=== PATIENT | female | born 1955 | race Caucasian/White ===

== ENCOUNTER 2018-02-01 10:19 | Emergency (ER) | payer BC ==
[2018-02-01] MEDS ORDERED: HYDROmorphone 1 MG/ML 1 ML SYRINGE IM STA (10:55)
[2018-02-01] MEDS ORDERED: predniSONE 50 MG TAB PO STA (10:55)
[2018-02-01] MEDS ORDERED: KETOROLAC 60 MG/2 ML VIAL IM STA (10:55)
--- NOTE | 2018-02-01 10:59 | ED ---
General Adult HPI - General Chief complaint: Extremity Problem,Nontraumatic Stated complaint: Sciatic Pain Time Seen by Provider: 02/01/18 10:20 Source: patient, RN notes reviewed Mode of arrival: wheelchair Limitations: physical limitation - History of Present Illness Initial comments: This is a 62-year-old female who presents emergency Department complaining of left-sided back pain it radiates down the anterior aspect of her left leg. Patient states there is some altered sensation on her winn but no numbness. Patient denies any perineum numbness. Patient denies any urinary incontinence or urinary retention. Patient denies any injury. Patient states she's had similar symptoms in the past. Patient states standing seems to improve the pain sitting worsens it as does lying down. Patient states she seen a chiropractor twice this week and has not improved her symptoms. Patient is also seen a massage therapist and that has not improved her symptoms. Patient denies any weakness of her lower extremities. He has a minute. The patient she prefers to stand than sit on the bed. - Related Data Home Medications Medication Instructions Recorded Confirmed Aspirin EC [Ecotrin Low Dose] 81 mg PO HS 02/01/18 02/01/18 Bimatoprost [Lumigan .01% Ophth 1 drop BOTH EYES HS 02/01/18 02/01/18 Soln] Insulin Detemir [Levemir Flextouch] 55 units SQ HS 02/01/18 02/01/18 Liraglutide [Victoza 3-Rober] 1.8 mg SQ DAILY 02/01/18 02/01/18 Magnesium Oxide [Mag-Ox] 250 mg PO HS 02/01/18 02/01/18 Repaglinide [Prandin] 0.5 mg PO AC-TID 02/01/18 02/01/18 Simvastatin [Zocor] 20 mg PO HS 02/01/18 02/01/18 Spironolactone [Aldactone] 25 mg PO DAILY 02/01/18 02/01/18 Timolol 0.5% Ophth Gel Forming 1 drops RIGHT EYE DAILY 02/01/18 02/01/18 [Timoptic-Xe] metFORMIN HCL 1,000 mg PO BID 02/01/18 02/01/18 Previous Rx's Medication Instructions Recorded Hydrocodone/Acetaminophen [Kipton 1 each PO Q4HR PRN #14 tab 02/01/18 5-325] Ibuprofen [Motrin] 600 mg PO Q6HR PRN #20 tab 02/01/18 predniSONE 40 mg PO DAILY #8 tab 02/01/18 Allergies Allergy/AdvReac Type Severity Reaction Status Date / Time No Known Allergies Allergy Verified 02/01/18 11:12 Review of Systems ROS Statement: Those systems with pertinent positive or pertinent negative responses have been documented in the HPI. ROS Other: All systems not noted in ROS Statement are negative. 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 Patient is nontoxic and well- hydrated and is moderate distress. ENT: Neck is soft and supple. No significant lymphadenopathy is noted. Oropharynx is clear. Moist mucous membranes. Neck has full range of motion without eliciting any pain. EYES: The sclera were anicteric and conjunctiva were pink and moist. Extraocular movements were intact and pupils were equal round and reactive to light. Eyelids were unremarkable. PULMONARY: Unlabored respirations. Good breath sounds bilaterally. No audible rales rhonchi or wheezing was noted. CARDIOVASCULAR: There is a regular rate and rhythm without any murmurs gallops or rubs. ABDOMEN: Soft and nontender with normal bowel sounds. No palpable organomegaly was noted. There is no palpable pulsatile mass. SKIN: Skin is clear with no lesions or rashes and otherwise unremarkable. NEUROLOGIC: Patient is alert and oriented x3. Cranial nerves II through XII are grossly intact. Motor and sensory are also intact. Normal speech, volume and content. Symmetrical smile. Straight Leg raise is negative bilaterally. MUSCULOSKELETAL: Normal extremities with adequate strength and full range of motion. There is no lumps lumps rashes or swelling in the inguinal area on the left no findings of her hernia. LYMPHATICS: No significant lymphadenopathy is noted PSYCHIATRIC: Normal psychiatric evaluation. Limitations: physical limitation Course Vital Signs 02/01/18 02/01/18 10:23 11:27 Temperature 98.2 F Pulse Rate 75 68 Respiratory 18 18 Rate Blood Pressure 150/82 143/79 O2 Sat by Pulse 100 97 Oximetry Medical Decision Making - Medical Decision Making X-ray shows no acute changes however there is some arthritis and spondylolisthesis that's minimal Patient's pain was much improved. Disposition Clinical Impression: Lumbar radiculopathy Disposition: HOME SELF-CARE Condition: Good Instructions: Lumbar Radiculopathy (ED) Prescriptions: Hydrocodone/Acetaminophen [Kipton 5-325] 1 each PO Q4HR PRN #14 tab PRN Reason: Pain Ibuprofen [Motrin] 600 mg PO Q6HR PRN #20 tab PRN Reason: For pain predniSONE 40 mg PO DAILY #8 tab Is patient prescribed a controlled substance at d/c from ED?: Yes When asked, does pt state using other controlled substances?: No If prescribed controlled substance>3 days was MAPS reviewed?: Prescribed <3 Days If opioid is for acute pain is fill amount 7 days or less?: Yes If Rx opioid, was Start Talking consent form obtained?: Yes Referrals: Mahnaz Gill DO [Primary Care Provider] - 1-2 days Time of Disposition: 13:17
--- NOTE | 2018-02-01 12:19 | XR ---
EXAMINATION TYPE: XR lumbosacral spine min 4V DATE OF EXAM: 02/01/2018 CLINICAL HISTORY: Left-sided sciatic pain TECHNIQUE: Frontal, lateral, and oblique images of the lumbar spine are obtained. COMPARISON: None FINDINGS: There are 5 lumbar type vertebral bodies identified. There is transitional-type L6 verteb ra is sacralized on the right. The lumbar spine shows slight grade 1 anterolisthesis of L4 on L5 with out evidence of acute fracture or dislocation. Vertebral body heights are within normal limits. Mil d to moderate multilevel disc space narrowing with moderate multilevel anterior and lateral spurring most prominent in the upper lumbar levels. The oblique images appear within normal limits. Vascular c alcification overlying soft tissue is seen. IMPRESSION: As above.
[2018-02-01 13:27] VITALS: BP 178/83; PULSE 57; RESP 16; TEMP 97.8
== END 2018-02-01 13:39 | disposition home or self-care (01) ==
LOC: EC 10:19
DX: M54.16 Radiculopathy, lumbar region (principal); E11.9 Type 2 diabetes mellitus without complications; E78.5 Hyperlipidemia, unspecified; I10 Essential (primary) hypertension; E07.9 Disorder of thyroid, unspecified; Z79.4 Long term (current) use of insulin; Z79.82 Long term (current) use of aspirin; Z79.899 Other long term (current) drug therapy
CPT/HCPCS: 72110; 99283; 96372 ×2; J1885; J1170; J7512

== ENCOUNTER 2024-06-18 14:31 | Inpatient (IN) | payer MEDICARE, OTHER ==
--- NOTE | 2024-06-18 15:09 | ED ---
General Adult HPI - General Chief complaint: Back Pain/Injury Stated complaint: back pain Time Seen by Provider: 06/18/24 14:54 Source: patient, RN notes reviewed Mode of arrival: ambulatory Limitations: no limitations - History of Present Illness Initial comments: 68-year-old female presents to the emergency department for evaluation of left lower back pain. Patient reports that this started yesterday and was mild. Since then she has noticed increased pain. She states that the pain is dull when she is sitting but is sharp shooting pain with movement. Patient's son notes that the patient has not been taking her medications as she is supposed t o. He states that she has a history of dementia and has been fighting to take her medications and therefore her blood sugars have been in adequately controlled. He reports that her sugars have been 300s to 500s at home. Patient reports increased thirst and frequent urination. - Related Data Home Medications Medication Instructions Recorded Confirmed Aspirin EC [Ecotrin Low Dose] 81 mg PO HS 02/01/18 06/18/24 Bimatoprost [Lumigan .01% Ophth 1 drop BOTH EYES HS 02/01/18 06/18/24 Soln] Simvastatin [Zocor] 20 mg PO HS 02/01/18 06/18/24 Spironolactone [Aldactone] 25 mg PO DAILY 02/01/18 06/18/24 Timolol 0.5% Ophth Gel Forming 1 drop BOTH EYES DAILY 02/01/18 06/19/24 [Timoptic-Xe] metFORMIN HCL [Glucophage] 1,000 mg PO BID 02/01/18 06/18/24 Celecoxib [CeleBREX] 200 mg PO DAILY 06/18/24 06/19/24 Insulin Aspart [NovoLOG Flexpen] 20 units SQ AC-TID 06/18/24 06/18/24 Insulin Glargine,Hum.rec.anlog 100 units SQ HS 06/18/24 06/18/24 [Que Cabreraostivory] Losartan/Hydrochlorothiazide 1 tab PO DAILY 06/18/24 06/18/24 [Hyzaar 100-25 Tablet] Repaglinide [Prandin] 0.5 mg PO BID 06/18/24 06/18/24 Allergies Allergy/AdvReac Type Severity Reaction Status Date / Time No Known Allergies Allergy Verified 06/18/24 14:51 Review of Systems ROS Statement: Those systems with pertinent positive or pertinent negative responses have been documented in the HPI. ROS Other: All systems not noted in ROS Statement are negative. 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 Absent: scleral icterus, conjunctival injection, periorbital swelling ENT exam: Present: normal exam, mucous membranes moist Neck exam: Present: normal inspection. Absent: tenderness, meningismus, lymphadenopathy Respiratory exam: Present: normal lung sounds bilaterally. Absent: respiratory distress, wheezes, rales, rhonchi, stridor Cardiovascular Exam: Present: regular rate, normal rhythm, normal heart sounds. Absent: systolic murmur, diastolic murmur, rubs, gallop, clicks GI/Abdominal exam: Present: soft. Absent: distended, tenderness, guarding, rebound, rigid Back exam: Present: tenderness Neurological exam: Present: alert. Absent: oriented X3 (Oriented x 2, patient baseline) Psychiatric exam: Present: normal affect, normal mood Skin exam: Present: warm, dry, intact, normal color. Absent: rash Course Vital Signs 06/18/24 06/18/24 14:48 22:14 Temperature 98.1 F Pulse Rate 68 62 Respiratory 20 18 Rate Blood Pressure 142/84 136/76 O2 Sat by Pulse 100 96 Oximetry Medical Decision Making - Medical Decision Making Was pt. sent in by a medical professional or institution (, PA, MUSICAL THERAPIST, urgent care, hospital, or detention...) When possible be specific @ -No Did you speak to anyone other than the patient for history (EMS, parent, family, police, friend...)? What history was obtained from this source @ -discussed with patients son Did you review nursing and triage notes (agree or disagree)? Why? @ -I reviewed and agree with nursing and triage notes Were old charts reviewed (outside hosp., previous admission, EMS record, old EKG, old radiological studies, urgent care reports/EKG's, detention records)? Report findings @ -No old charts were reviewed Differential Diagnosis (chest pain, altered mental status, abdominal pain women, abdominal pain men, vaginal bleeding, weakness, fever, dyspnea, syncope, hea dache, dizziness, GI bleed, back pain, seizure, CVA, palpatations, mental health, musculoskeletal)? @ -Differential Back Pain: Strain, zoster, cauda equina syndrome, epidural abscess, vertebral oste omyelitis, discitis, fracture, subluxation, disc herniation, DJD, spinal stenosis, dissection, AAA, pancreatitis, peptic ulcer disease, pyelonephritis, kidney stone, this is not meant to be an all-inclusive list. EKG interpreted by me (3pts min.). @ -None X-rays interpreted by me (1pt min.). @ -None done CT interpreted by me (1pt min.). @ -None done U/S interpreted by me (1pt. min.). @ -None done What testing was considered but not performed or refused? (CT, X-rays, U/S, labs)? Why? @ -None What meds were considered but not given or refused? Why? @ -None Did you discuss the management of the patient with other professionals (professionals i.e. , PA, MUSICAL THERAPIST, lab, RT, psych nurse, licensed clinical social worker, tree trimmer, teacher, unclaimed property officer, manager rn case)? Give summary @ -Management discussed with Evon Ordaz with [facility] who is accepting of the admission Was smoking cessation discussed for >3mins.? @ -No Was critical care preformed (if so, how long)? @ -No Were there social determinants of health that impacted care today? How? (Homelessness, low income, unemployed, alcoholism, drug addiction, transportation, low edu. Level, literacy, decrease access to med. care, retirement, rehab)? @ -No Was there de-escalation of care discussed even if they declined (Discuss DNR or withdrawal of care, Hospice)? DNR status @ -No What co-morbidities impacted this encounter? (DM, HTN, Smoking, COPD, CAD, Can cer, CVA, ARF, Chemo, Hep., AIDS, mental health diagnosis, sleep apnea, morbid obesity)? @ -None Was patient admitted / discharged? Hospital course, mention meds given and route, prescriptions, significant lab abnormalities, going to OR and other pertinent info. @ -Admitted. Patient presented to the emergency department for evaluation of back pain. Patient has a history of dementia and has been refusing medications. Patient's son expressing concerns for blood sugar control. X-rays obtained of the lumbar spine and pelvis which show no acute process. UA was obtained laboratory studies.Shows moderate leukocyte esterase but contaminated with 13 squamous epithelial cells, 4+ glucose and 2+ ketones are present. Laboratory studies obtained revealing no significant leukocytosis, hemoglobin stable; normal coagulation studies. Glucose 292 patient was provided a liter of fluids in the ED. Sliding scale insulin ordered. Son expressing concern for her care at home as he lives 1 hour away and her is not helping her with her medications. Patient will be admitted. Case was discussed with Evon Ordaz who is accepting of the admission. Case discussed with Dr. Rob Undiagnosed new problem with uncertain prognosis? @ -No Drug Therapy requiring intensive monitoring for toxicity (Heparin, Nitro, Insulin, Cardizem)? @ -No Were any procedures done? @ -No Diagnosis/symptom? @ -Uncontrolled diabetes, back pain Acute, or Chronic, or Acute on Chronic? @ -acute Uncomplicated (without systemic symptoms) or Complicated (systemic symptoms)? @ -uncomplicated Side effects of treatment? @ -No Exacerbation, Progression, or Severe Exacerbation? @ -No Poses a threat to life or bodily function? How? (Chest pain, [place], [place], pneumonia, PE, COPD, DKA, ARF, appy, cholecystitis, CVA, Diverticulitis, Homicidal, Suicidal, threat to staff... and all critical care pts) @ -No - Lab Data Result diagrams: 06/18/24 17:17 06/18/24 17:17 Lab Results 06/18/24 06/18/24 06/18/24 Range/Units 15:29 17:13 17:17 WBC 6.8 (3.8-10.6) k/uL RBC 4.69 (3.80-5.40) m/uL Hgb 14.7 (11.4-16.0) gm/dL Hct 44.1 (34.0-46.0) % MCV 94.0 (80.0-100.0) fL MCH 31.3 (25.0-35.0) pg MCHC 33.3 (31.0-37.0) g/dL RDW 13.5 (11.5-15.5) % Plt Count 365 (150-450) k/uL MPV 7.7 Neutrophils % 64 % Lymphocytes % 29 % Monocytes % 5 % Eosinophils % 1 % Basophils % 1 % Neutrophils # 4.3 (1.3-7.7) k/uL Lymphocytes # 2.0 (1.0-4.8) k/uL Monocytes # 0.3 (0-1.0) k/uL Eosinophils # 0.1 (0-0.7) k/uL Basophils # 0.0 (0-0.2) k/uL PT (10.0-12.5) sec INR (<1.2) APTT (22.0-30.0) sec Sodium (137-145) mmol/L Potassium (3.5-5.1) mmol/L Chloride (98-107) mmol/L Carbon Dioxide (22-30) mmol/L Anion Gap mmol/L BUN (7-17) mg/dL Creatinine (0.52-1.04) mg/dL Est GFR (CKD-EPI)AfAm (>60 ml/min/1.73 sqM) Est GFR (CKD-EPI)NonAf (>60 ml/min/1.73 sqM) Glucose (74-99) mg/dL POC Glucose (mg/dL) 287 H (70-110) mg/dL POC Glu Winterizer ID Karol Tish Elias Calcium (8.4-10.2) mg/dL Total Bilirubin (0.2-1.3) mg/dL AST (14-36) U/L ALT (4-34) U/L Alkaline Phosphatase (38-126) U/L Total Protein (6.3-8.2) g/dL Albumin (3.5-5.0) g/dL Lipase (23-300) U/L Urine Color Colorless Urine Appearance Cloudy H (Clear) Urine pH 5.5 (5.0-8.0) Ur Specific Ceres 1.016 (1.001-1.035) Urine Protein Negative (Negative) Urine Glucose (UA) 4+ H (Negative) Urine Ketones 2+ H (Negative) Urine Blood Negative (Negative) Urine Nitrite Negative (Negative) Urine Bilirubin Negative (Negative) Urine Urobilinogen <2.0 (<2.0) mg/dL Ur Leukocyte Esterase Moderate H (Negative) Urine RBC 2 (0-5) /hpf Urine WBC 10 H (0-5) /hpf Ur Squamous Epith Cells 13 H (0-4) /hpf Urine Bacteria Rare H (None) /hpf Urine Mucus Rare H (None) /hpf Urine Yeast (Budding) Rare H (None) /hpf 06/18/24 06/18/24 06/18/24 Range/Units 17:17 17:17 20:10 WBC (3.8-10.6) k/uL RBC (3.80-5.40) m/uL Hgb (11.4-16.0) gm/dL Hct (34.0-46.0) % MCV (80.0-100.0) fL MCH (25.0-35.0) pg MCHC (31.0-37.0) g/dL RDW (11.5-15.5) % Plt Count (150-450) k/uL MPV Neutrophils % % Lymphocytes % % Monocytes % % Eosinophils % % Basophils % % Neutrophils # (1.3-7.7) k/uL Lymphocytes # (1.0-4.8) k/uL Monocytes # (0-1.0) k/uL Eosinophils # (0-0.7) k/uL Basophils # (0-0.2) k/uL PT 10.4 (10.0-12.5) sec INR 0.9 (<1.2) APTT 23.3 (22.0-30.0) sec Sodium 133 L (137-145) mmol/L Potassium 4.9 (3.5-5.1) mmol/L Chloride 98 (98-107) mmol/L Carbon Dioxide 25 (22-30) mmol/L Anion Gap 10 mmol/L BUN 23 H (7-17) mg/dL Creatinine 0.62 (0.52-1.04) mg/dL Est GFR (CKD-EPI)AfAm >90 (>60 ml/min/1.73 sqM) Est GFR (CKD-EPI)NonAf >90 (>60 ml/min/1.73 sqM) Glucose 292 H (74-99) mg/dL POC Glucose (mg/dL) 260 H (70-110) mg/dL POC Glu Winterizer ID Phoebe Barahona Calcium 10.4 H (8.4-10.2) mg/dL Total Bilirubin 1.1 (0.2-1.3) mg/dL AST 31 (14-36) U/L ALT 23 (4-34) U/L Alkaline Phosphatase 81 (38-126) U/L Total Protein 8.1 (6.3-8.2) g/dL Albumin 4.8 (3.5-5.0) g/dL Lipase 49 (23-300) U/L Urine Color Urine Appearance (Clear) Urine pH (5.0-8.0) Ur Specific Ceres (1.001-1.035) Urine Protein (Negative) Urine Glucose (UA) (Negative) Urine Ketones (Negative) Urine Blood (Negative) Urine Nitrite (Negative) Urine Bilirubin (Negative) Urine Urobilinogen (<2.0) mg/dL Ur Leukocyte Esterase (Negative) Urine RBC (0-5) /hpf Urine WBC (0-5) /hpf Ur Squamous Epith Cells (0-4) /hpf Urine Bacteria (None) /hpf Urine Mucus (None) /hpf Urine Yeast (Budding) (None) /hpf Disposition Clinical Impression: Hyperglycemia, Back pain, Unable to care for self Disposition: ADMITTED IP TO THIS HOSP Condition: Stable Is patient prescribed a controlled substance at d/c from ED?: No
[2024-06-18 15:49] LABS: Appearance,Urine Cloudy (Clear); Bacteria,Urine Rare /hpf; Bilirubin,Urine Negative (Negative); Blood,Urine Negative (Negative); Budding Yeast,Urine Rare /hpf; Color,Urine Colorless; Glucose,Urine (UA) 4+ (Negative); Leukocyte Esterase,Urine Moderate (Negative); Mucus,Urine Rare /hpf; Nitrite,Urine Negative (Negative); PH, Urine 5.5 (5.0-8.0); Protein,Urine Negative (Negative); RBC,Urine 2 /hpf (0-5); Specific Gravity,Urine 1.016 (1.001-1.035); Squamous Epithelial Cell,Urine 13 /hpf (0-4); Urobilinogen,Urine <2.0 mg/dL (<2.0); WBC,Urine 10 /hpf (0-5)
--- NOTE | 2024-06-18 16:01 | XR ---
EXAMINATION TYPE: XR pelvis AP view DATE OF EXAM: 06/18/2024 3:33 PM COMPARISON: None. CLINICAL INDICATION: Female, 68 years old with history of pain, TECHNIQUE: AP view(s) obtained. FINDINGS: Femoral heads articulate with the acetabulum. Symphysis pubis and sacroiliac joints are normal. No ac tatitlek fractures or dislocations evident. Normal bowel gas is present. IMPRESSION: 1. Unremarkable AP pelvis [facility], Workstation: [facility], 06/18/2024 3:59 PM
[2024-06-18 16:03] LABS: Ketones,Urine 2+ (Negative)
--- NOTE | 2024-06-18 16:03 | XR ---
EXAMINATION TYPE: XR lumbar spine 2 or 3V DATE OF EXAM: 06/18/2024 3:33 PM COMPARISON: None. CLINICAL INDICATION: Female, 68 years old with history of pain, TECHNIQUE: 3 view(s) obtained. FINDINGS: There are 5 lumbar-type vertebral bodies. Pedicles are intact. Some disc space narrowing is present p osteriorly at L2-3. Vertebral body heights are preserved. Alignment is preserved. Narrowing of the L5 -S1 disc height is likely present. Minimal spondylosis is present. Vascular calcifications within the aorta. IMPRESSION: 1. No acute osseous abnormality lumbar spine. 2. Degenerative disc changes L2-3 and L5-S1 [facility], Workstation: [facility], 06/18/2024 4:01 PM
[2024-06-18 17:14] LABS: Glucose,Whole Blood 287 mg/dL (70-110)
[2024-06-18] MEDS: SODIUM CHLORIDE 0.9% 2,000 ML IV ONE (17:25)
[2024-06-18 17:45] LABS: INR 0.9 (<1.2); Partial Thromboplastin Time 23.3 sec (22.0-30.0); Prothrombin Time 10.4 sec (10.0-12.5)
[2024-06-18 17:46] LABS: Basophils % (A) 1 %; Eosinophils # (A) 0.1 k/uL (0-0.7); Eosinophils % (A) 1 %; HCT 44.1 % (34.0-46.0); HGB 14.7 gm/dL (11.4-16.0); Lymphocytes % (A) 29 %; MCH 31.3 pg (25.0-35.0); MCHC 33.3 g/dL (31.0-37.0); Mean Platelet Volume 7.7; Monocytes # (A) 0.3 k/uL (0-1.0); Monocytes % (A) 5 %; Neutrophils # (A) 4.3 k/uL (1.3-7.7); Neutrophils % (A) 64 %; Platelet Count 365 k/uL (150-450); RBC 4.69 m/uL (3.80-5.40); RDW 13.5 % (11.5-15.5); WBC 6.8 k/uL (3.8-10.6)
[2024-06-18 18:05] LABS: ALT 23 U/L (4-34); African American GFR (CKD) >90 (>60 ml/min/1.73 sqM); Albumin 4.8 g/dL (3.5-5.0); Anion Gap 10 mmol/L; Blood Urea Nitrogen 23 mg/dL (7-17); Calcium 10.4 mg/dL (8.4-10.2); Carbon Dioxide 25 mmol/L (22-30); Chloride 98 mmol/L (98-107); Glucose 292 mg/dL (74-99); Lipase 49 U/L (23-300); Non-African American GFR(CKD) >90 (>60 ml/min/1.73 sqM); Sodium 133 mmol/L (137-145); Total Bilirubin 1.1 mg/dL (0.2-1.3); Total Protein 8.1 g/dL (6.3-8.2)
[2024-06-18 18:16] LABS: AST 31 U/L (14-36); Alkaline Phosphatase 81 U/L (38-126); Potassium 4.9 mmol/L (3.5-5.1)
[2024-06-18] MEDS: KETOROLAC 15 MG/ML 1 ML VIAL IVP STA (20:02)
[2024-06-18 20:11] LABS: Glucose,Whole Blood 260 mg/dL (70-110)
[2024-06-18] MEDS ORDERED: NALOXONE 0.4 MG/ML 1 ML VIAL IV PRN (20:23)
[2024-06-18] MEDS ORDERED: ACETAMINOPHEN TAB 325 MG TAB PO PRN (20:23)
[2024-06-18] MEDS ORDERED: DEXTROSE 50% SYRINGE 50 ML IVP PRN ×2 (20:24)
[2024-06-18] MEDS ORDERED: LORazepam 2 MG/ML INJ IV PRN (20:32)
[2024-06-18] MEDS: INSULIN ASPART (NovoLOG) 100 UNIT/ML VIAL SQ SCH (21:44)
[2024-06-18] MEDS: MORPHINE SULFATE 4 MG/ML SYRINGE IV PRN (21:44)
[2024-06-18] MEDS: SODIUM CHLORIDE 0.9% 1,000 ML IV SCH (21:44)
[2024-06-18] MEDS: LORazepam 2 MG/ML INJ IV STA (21:45)
[2024-06-18 23:52] LABS: Glucose,Whole Blood 308 mg/dL (70-110)
[2024-06-19 07:14] LABS: Glucose,Whole Blood 238 mg/dL (70-110)
[2024-06-19] MEDS: KETOROLAC 15 MG/ML 1 ML VIAL IVP PRN (09:52)
[2024-06-19] MEDS: TIMOLOL 0.5% OPHTH DROPS 5 ML BTL BOTH EYES SCH (11:08)
--- NOTE | 2024-06-19 12:24 | P.HPIM ---
History of Present Illness 68-year-old female came in with complaints of low back pain without any radiculopathy or any weakness. Her back pain is much better now but patient has some memory issues does not take her medications will need supervision at home patient blood sugars are high was complaining of urinary frequency that is because of hyperglycemia globin A1c is highly elevated about 11.8 patient does not take her medications. Patient is also hyponatremic secondary to hyperglycemia. REVIEW OF SYSTEMS: All other systems are negative except those mentioned in the HPI PHYSICAL EXAMINATION: GENERAL: The patient is alert and oriented x3, not in any acute distress. Well developed, well nourished. HEENT: Pupils are round and equally reacting to light. EOMI. No scleral icterus. No conjunctival pallor. Normocephalic, atraumatic. No pharyngeal erythema. No thyromegaly. CARDIOVASCULAR: S1 and S2 present. No murmurs, rubs, or gallops. PULMONARY: Chest is clear to auscultation, no wheezing or crackles. ABDOMEN: Soft, nontender, nondistended, normoactive bowel sounds. No palpable organomegaly. MUSCULOSKELETAL: No joint swelling or deformity. EXTREMITIES: No cyanosis, clubbing, or pedal edema. NEUROLOGICAL: Gross neurological examination did not reveal any focal deficits. SKIN: No rashes. Assessment and plan -Chronic back pain without any radiculopathy continue with present pain medication her pain is well-controlled with tramadol -Hyponatremia secondary to hydrochlorothiazide spironolactone and hyperglycemia improved, patient is on IV fluids this can be discontinued -Hypertension patient blood pressure is within normal limits and patient will be continued on losartan will hold off further diuretics -Hyperlipidemia -Type 2 diabetes mellitus uncontrolled elevated blood sugars secondary to noncompliance patient will be resumed on home dose will monitor the blood sugars titration depending on her response to these medications -Dementia etiology of dementia is not clear probably Alzheimer's will obtain Mini-Mental status exam will use Seroquel as needed if she has gets agitated or for sundowners may need placement Hemorrhage generalized weakness PT and OT evaluation probably will need placement DVT prophylaxis: Lovenox Past Medical History Past Medical History: Dementia, Diabetes Mellitus, Eye Disorder, Hyperlipidemia, Hypertension, Memory Impairment, Sleep Apnea/CPAP/BIPAP, Thyroid Disorder History of Any Multi-Drug Resistant Organisms: None Reported Past Surgical History: Tubal Ligation Additional Past Surgical History / Comment(s): 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, bilat bunions removed Past Psychological History: No Psychological Hx Reported Smoking Status: Never smoker Past Alcohol Use History: None Reported Past Drug Use History: None Reported Medications and Allergies Home Medications Medication Instructions Recorded Confirmed Type Aspirin EC [Ecotrin Low Dose] 81 mg PO HS 02/01/18 06/18/24 History Bimatoprost [Lumigan .01% Ophth 1 drop BOTH EYES HS 02/01/18 06/18/24 History Soln] Simvastatin [Zocor] 20 mg PO HS 02/01/18 06/18/24 History Spironolactone [Aldactone] 25 mg PO DAILY 02/01/18 06/18/24 History Timolol 0.5% Ophth Gel Forming 1 drop BOTH EYES DAILY 02/01/18 06/19/24 History [Timoptic-Xe] metFORMIN HCL [Glucophage] 1,000 mg PO BID 02/01/18 06/18/24 History Celecoxib [CeleBREX] 200 mg PO DAILY 06/18/24 06/19/24 History Insulin Aspart [NovoLOG Flexpen] 20 units SQ AC-TID 06/18/24 06/18/24 History Insulin Glargine,Hum.rec.anlog 100 units SQ HS 06/18/24 06/18/24 History [Toujeo Max Solostar] Losartan/Hydrochlorothiazide 1 tab PO DAILY 06/18/24 06/18/24 History [Hyzaar 100-25 Tablet] Repaglinide [Prandin] 0.5 mg PO BID 06/18/24 06/18/24 History Allergies Allergy/AdvReac Type Severity Reaction Status Date / Time No Known Allergies Allergy Verified 06/18/24 14:51 Physical Exam Vitals: Vital Signs Temp Pulse Pulse Resp BP BP Pulse Ox 06/19/24 07:10 97.5 F L 48 L 16 143/71 100 06/19/24 02:00 97.6 F 61 12 120/61 97 06/18/24 23:09 98.0 F 62 14 143/75 96 06/18/24 22:14 62 18 136/76 96 06/18/24 14:48 98.1 F 68 20 142/84 100 Intake and Output 06/18/24 06/19/24 06/19/24 22:59 06:59 14:59 Intake Total 250 Output Total 288 Balance -38 Intake: Oral 250 Output: Urine 70 Post Void Residual 218 Other: Weight 90.718 kg Results CBC & Chem 7: 06/18/24 17:17 06/18/24 17:17 Labs: Abnormal Lab Results - Last 24 Hours (Table) 06/18/24 06/18/24 06/18/24 Range/Units 15:29 17:13 17:17 Sodium 133 L (137-145) mmol/L BUN 23 H (7-17) mg/dL Glucose 292 H (74-99) mg/dL POC Glucose (mg/dL) 287 H (70-110) mg/dL Hemoglobin A1c (<=6.0) % Calcium 10.4 H (8.4-10.2) mg/dL Urine Appearance Cloudy H (Clear) Urine Glucose (UA) 4+ H (Negative) Urine Ketones 2+ H (Negative) Ur Leukocyte Esterase Moderate H (Negative) Urine WBC 10 H (0-5) /hpf Ur Squamous Epith Cells 13 H (0-4) /hpf Urine Bacteria Rare H (None) /hpf Urine Mucus Rare H (None) /hpf Urine Yeast (Budding) Rare H (None) /hpf 06/18/24 06/18/24 06/19/24 Range/Units 20:10 23:50 04:45 Sodium (137-145) mmol/L BUN (7-17) mg/dL Glucose (74-99) mg/dL POC Glucose (mg/dL) 260 H 308 H (70-110) mg/dL Hemoglobin A1c 11.5 H (<=6.0) % Calcium (8.4-10.2) mg/dL Urine Appearance (Clear) Urine Glucose (UA) (Negative) Urine Ketones (Negative) Ur Leukocyte Esterase (Negative) Urine WBC (0-5) /hpf Ur Squamous Epith Cells (0-4) /hpf Urine Bacteria (None) /hpf Urine Mucus (None) /hpf Urine Yeast (Budding) (None) /hpf 06/19/24 Range/Units 07:11 Sodium (137-145) mmol/L BUN (7-17) mg/dL Glucose (74-99) mg/dL POC Glucose (mg/dL) 238 H (70-110) mg/dL Hemoglobin A1c (<=6.0) % Calcium (8.4-10.2) mg/dL Urine Appearance (Clear) Urine Glucose (UA) (Negative) Urine Ketones (Negative) Ur Leukocyte Esterase (Negative) Urine WBC (0-5) /hpf Ur Squamous Epith Cells (0-4) /hpf Urine Bacteria (None) /hpf Urine Mucus (None) /hpf Urine Yeast (Budding) (None) /hpf Thrombosis Risk Factor Assmnt - Choose All That Apply Any of the Below Risk Factors Present?: No Each Risk Factor Represents 2 Points: Age 61-74 years Thrombosis Risk Factor Assessment Total Risk Factor Score: 2 Thrombosis Risk Factor Assessment Level: Low Risk
[2024-06-19 12:41] LABS: Glucose,Whole Blood 271 mg/dL (70-110)
[2024-06-19] MEDS: LOSARTAN 50 MG TAB PO SCH (13:03)
[2024-06-19] MEDS: INSULIN ASPART (NovoLOG) 100 UNIT/ML VIAL SQ SCH (13:04)
[2024-06-19 17:17] LABS: Glucose,Whole Blood 149 mg/dL (70-110)
[2024-06-19] MEDS: REPAGLINIDE 1 MG TAB PO SCH (17:40)
[2024-06-19 20:03] LABS: Glucose,Whole Blood 153 mg/dL (70-110)
[2024-06-19] MEDS: ATORVASTATIN 10 MG TAB PO SCH (20:10)
[2024-06-19] MEDS: ASPIRIN 81 MG PO SCH (20:10)
[2024-06-19] MEDS: LATANOPROST 0.005% OPHTH DROPS 2.5 ML BTL BOTH EYES SCH (20:10)
[2024-06-19] MEDS: QUEtiapine 25 MG TAB PO PRN (20:11)
[2024-06-19] MEDS: metFORMIN 500 MG TAB PO SCH (20:12)
[2024-06-19] MEDS: INSULIN DETEMIR (LEVEMIR) 100 UNIT/ML SYR SQ SCH (20:19)
[2024-06-20 07:26] LABS: Glucose,Whole Blood 108 mg/dL (70-110)
[2024-06-20] MEDS: ENOXAPARIN 40 MG/0.4 ML SYRINGE SQ SCH (08:39)
[2024-06-20 10:42] LABS: HCT 36.5 % (37.2-46.3); HGB 12.1 g/dL (12.0-15.0); MCH 31.3 pg (27.0-32.0); MCHC 33.2 g/dL (32.0-37.0); MCV 94.3 FL (80.0-97.0); Mean Platelet Volume 9.6 FL (9.5-12.2); NRBC Per 100 WBC 0 X 10*3/uL (0.00-0.01); Platelet Count 286 X 10*3/uL (140-440); RBC 3.87 X 10*6/uL (4.10-5.20); RDW 13.2 % (11.5-14.5); WBC 6.04 X 10*3/uL (4.50-10.00)
[2024-06-20 10:54] LABS: BUN/Creat Ratio 39.33 Ratio (12.00-20.00); Blood Urea Nitrogen 23.6 mg/dL (9.0-27.0); Calcium 9.5 mg/dL (8.7-10.3); Carbon Dioxide 23.1 mmol/L (21.6-31.8); Chloride 107 mmol/L (96-109); Glucose 120 mg/dL (70-110); Sodium 141 mmol/L (135-145)
[2024-06-20 12:08] LABS: Glucose,Whole Blood 165 mg/dL (70-110)
[2024-06-20 12:17] VITALS: BP 159/81; PULSE 62; RESP 18; TEMP 98.1
[2024-06-20 12:50] VITALS: BMI 37.8
--- NOTE | 2024-06-20 13:37 | P.DS ---
Providers Date of admission: 06/18/24 20:26 Expected date of discharge: 06/20/24 Attending physician: Jw Dixon Primary care physician: Teresa Francisco Hospital Course: Final diagnosis -Chronic back pain without any radiculopathy images were negative for fractures other than degenerative disc disease -Hyponatremia secondary to hydrochlorothiazide spironolactone and hyperglycemia, improving, continue holding diuretics for now -Hypertension -Hyperlipidemia -Type 2 diabetes mellitus uncontrolled with hyperglycemia, hemoglobin A1c is 11.2 -Dementia, etiology of dementia is not clear probably Alzheimer's and progressive -generalized weakness -DVT prophylaxis: Lovenox -GI prophylaxis -Obesity with a BMI of 37.8 -Full code Discharge disposition Patient is being discharged in a stable condition with guarded prognosis to home and will be arranging for home care. Patient will follow-up with Dr. Francisco in the outpatient setting upon discharge. Patient is to continue with current medication regimen and outpatient follow-up with primary care provider at scheduled appointment on June 25 as well as recommending outpatient follow- up with endocrine as scheduled. Total time taken is greater than 35 minutes. Hospital course This is a 68-year-old female who was recently admitted with back pain with difficulty walking and has been having progressive weakness and falls being closely monitored. Patient evaluated by PT/OT therapy recommending rehab and patient and family have discussed further and wants to take the patient home. Will arrange for home care with PT/OT therapy coming to the home along [facility] RN services to discuss tighter glycemic control. Patient's hemoglobin A1c currently is 11.2 and has been maintained on long-acting, sliding scale and oral diabetic agents. Patient's eating habits are poor and medication compliance extremely poor. Patient does have dementia which appears to be progressing and patient is becoming more noncompliant, sleeping a lot throughout the day, not taking medications as prescribed, and again not eating very well. Family wanted her to go to rehab for continued strength and mobility although patient is adamant she is going home. Patient will receive a walker and has walkers at the home although per family, patient does not use and is high risk for falls. Patient will be discharged home today with family and has a scheduled appointment with primary care provider this week. Currently no reports of chest pain, shortness of breath, or palpitations. Patient is afebrile. No reports of nausea or vomiting and patient is tolerating diet. Patient will be discharged home today. Guarded prognosis and high risk for readmissions given patient's noncompliance and progressive dementia. Patient would benefit from a Dexcom device or other options of wearable glucose monitoring as patient is noncompliant with monitoring blood sugars on her own, has advancing dementia, noncompliant with diet, and hemoglobin A1c is currently 11.2 and patient is insulin-dependent as well as oral diabetics. This was discussed with Dr. Francisco's office and will be addressed on June 25 at the appointment. May require prior authorization from insurance. Physical exam: Gen: This is a 68-year-old female who is awake, alert and oriented x 2, confused at times, well-developed, elderly appearing, obese, unkempt HEENT: Head is atraumatic, normocephalic. Pupils equal, round. Sclerae is anicteric. NECK: Supple. No JVD. No lymphadenopathy. No thyromegaly. LUNGS: Diminished breath sounds bilaterally otherwise clear to auscultation. No wheezes or rhonchi. No intercostal retractions. HEART: S1, S2 are muffled ABDOMEN: Soft. Bowel sounds are present. No masses. No tenderness. EXTREMITIES: No pedal edema. No calf tenderness. Shuffling gait with a walker NEUROLOGICAL: Patient is awake, alert and oriented x 1-2. Cranial nerves 2 through 12 are grossly intact. Diffusely weak Please refer to medication reconciliation sheet for a list of medications. The impression and plan of care has been dictated by Lisa Vang, Nurse Practitioner as directed. Dr. Destiny MD I have performed a history and examination and MDM of this patient, discussed the same with the dictator, and agree with the dictator's assessment and plan as written ,documented as a scribe. Based on total visit time, I have performed more than 50% of the visit. Patient Condition at Discharge: Stable Plan - Discharge Summary Discharge Rx Participant: Yes New Discharge Prescriptions: New Acetaminophen Tab [Tylenol] 650 mg PO Q6HR PRN tab PRN Reason: Mild Pain Or Fever > 100.5 Losartan [Cozaar] 50 mg PO DAILY #30 tab Continue Celecoxib [CeleBREX] 200 mg PO DAILY Insulin Aspart [NovoLOG Flexpen] 20 units SQ AC-TID Changed Aspirin EC [Ecotrin Low Dose] 81 mg PO DAILY #0 Repaglinide [Prandin] 1 mg PO DAILY #0 Insulin Glargine,Hum.rec.anlog [Toujeo Max Solostar] 100 units SQ DAILY #0 Simvastatin [Zocor] 20 mg PO DAILY #0 Discontinued Spironolactone [Aldactone] 25 mg PO DAILY Losartan/Hydrochlorothiazide [Hyzaar 100-25 Tablet] 1 tab PO DAILY No Action Timolol 0.5% Ophth Gel Forming [Timoptic-Xe 0.5% Gel Form] 1 drop BOTH EYES DAILY metFORMIN HCL [Glucophage] 1,000 mg PO BID Bimatoprost [Lumigan 0.01% Ophth Soln] 1 drop BOTH EYES HS Discharge Medication List Bimatoprost [Lumigan 0.01% Ophth Soln] 1 drop BOTH EYES HS 02/01/18 [History] Timolol 0.5% Ophth Gel Forming [Timoptic-Xe 0.5% Gel Form] 1 drop BOTH EYES DAILY 02/01/18 [History] metFORMIN HCL [Glucophage] 1,000 mg PO BID 02/01/18 [History] Celecoxib [CeleBREX] 200 mg PO DAILY 06/18/24 [History] Insulin Aspart [NovoLOG Flexpen] 20 units SQ AC-TID 06/18/24 [History] Acetaminophen Tab [Tylenol] 650 mg PO Q6HR PRN tab 06/20/24 [Rx] Aspirin EC [Ecotrin Low Dose] 81 mg PO DAILY #0 06/20/24 [Rx] Insulin Glargine,Hum.rec.anlog [Toujeo Max Solostar] 100 units SQ DAILY #0 06/20/24 [Rx] Losartan [Cozaar] 50 mg PO DAILY #30 tab 06/20/24 [Rx] Repaglinide [Prandin] 1 mg PO DAILY #0 06/20/24 [Rx] Simvastatin [Zocor] 20 mg PO DAILY #0 06/20/24 [Rx] Follow up Appointment(s)/Referral(s): Teresa Francisco DO [Primary Care Provider] - 1-2 days Activity/Diet/Wound Care/Special Instructions: Activity limited until follow-up Follow-up with primary care provider Pt would benefit from wearable blood glucose monitor device as hemoglobin A1c is 11.5 Keep your scheduled appointment on June 25 at 2 p.m. and 2:20 PM Follow diabetic diet Discharge Disposition: HOME WITH HOME HEALTH SERVICES
== END 2024-06-20 14:51 | disposition home health service (06) | DRG 92 ==
LOC: EC 14:31 → 5NMEDONC 20:26
PROVIDERS: ADMIT Internal Medicine; ATTEND Internal Medicine
DX: G89.29 Other chronic pain (principal); E87.1 Hypo-osmolality and hyponatremia; E11.65 Type 2 diabetes mellitus with hyperglycemia; E66.9 Obesity, unspecified; E78.5 Hyperlipidemia, unspecified; F02.80 Dementia in other diseases classified elsewhere, unspecified severity, without behavioral disturbance, psychotic disturbance, mood disturbance, and anxiety; G30.9 Alzheimer's disease, unspecified; G47.30 Sleep apnea, unspecified; I10 Essential (primary) hypertension; T50.2X5A Adverse effect of carbonic-anhydrase inhibitors, benzothiadiazides and other diuretics, initial encounter; X58.XXXA Exposure to other specified factors, initial encounter; Z68.37 Body mass index [BMI] 37.0-37.9, adult; Z79.1 Long term (current) use of non-steroidal anti-inflammatories (NSAID); R53.1 Weakness; Z79.4 Long term (current) use of insulin; Z79.84 Long term (current) use of oral hypoglycemic drugs; Z79.899 Other long term (current) drug therapy; Z91.119 Patient's noncompliance with dietary regimen due to unspecified reason; Z91.148 Patient's other noncompliance with medication regimen for other reason; Z91.199 Patient's noncompliance with other medical treatment and regimen due to unspecified reason
CPT/HCPCS: 36415; 72100; 72170; 80048; 80053; 81001; 83036; 83690; 85025; 85027; 85610; 85730; 96361; 96374; 99285

== ENCOUNTER 2024-10-13 23:49 | Inpatient (IN) | payer MEDICARE, OTHER ==
[2024-10-14 00:03] LABS: Glucose,Whole Blood >600 mg/dL (70-110)
[2024-10-14 01:27] LABS: Basophils # (A) 0.1 k/uL (0-0.2); Basophils % (A) 1 %; Eosinophils # (A) 0.1 k/uL (0-0.7); Eosinophils % (A) 2 %; HCT 43.4 % (34.0-46.0); HGB 13.9 gm/dL (11.4-16.0); Lymphocytes # (A) 1.8 k/uL (1.0-4.8); Lymphocytes % (A) 27 %; MCH 30.3 pg (25.0-35.0); MCV 94.9 fL (80.0-100.0); Mean Platelet Volume 7.4; Monocytes # (A) 0.3 k/uL (0-1.0); Monocytes % (A) 5 %; Neutrophils # (A) 4.3 k/uL (1.3-7.7); Neutrophils % (A) 64 %; Platelet Count 270 k/uL (150-450); RBC 4.58 m/uL (3.80-5.40); RDW 12.2 % (11.5-15.5); WBC 6.6 k/uL (3.8-10.6)
[2024-10-14 01:36] LABS: ALT 19 U/L (4-34); AST 20 U/L (14-36); African American GFR (CKD) >90 (>60 ml/min/1.73 sqM); Albumin 3.9 g/dL (3.5-5.0); Alcohol <10 mg/dL; Alkaline Phosphatase 84 U/L (38-126); Anion Gap 8 mmol/L; Blood Urea Nitrogen 13 mg/dL (7-17); Calcium 9.2 mg/dL (8.4-10.2); Carbon Dioxide 25 mmol/L (22-30); Chloride 99 mmol/L (98-107); Creatine Kinase 53 U/L (30-135); Glucose 500 mg/dL (74-99); Magnesium 1.8 mg/dL (1.6-2.3); Non-African American GFR(CKD) >90 (>60 ml/min/1.73 sqM); Sodium 132 mmol/L (137-145); Total Bilirubin 0.6 mg/dL (0.2-1.3); Total Protein 6.7 g/dL (6.3-8.2)
[2024-10-14 01:45] LABS: INR 0.9 (<1.2); Partial Thromboplastin Time 22.1 sec (22.0-30.0); Prothrombin Time 10.1 sec (10.0-12.5)
[2024-10-14 01:55] LABS: Potassium 4.8 mmol/L (3.5-5.1)
--- NOTE | 2024-10-14 01:55 | CT ---
EXAM: CT Head Without Intravenous Contrast CLINICAL HISTORY: ITS.REASON CT Reason: Trauma TECHNIQUE: Axial computed tomography images of the head/brain without intravenous contrast. CTDI is 45.2 mGy and DLP is 1034 mGy-cm. This CT exam was performed using one or more of the following dose reduction techniques: automated exposure control, adjustment of the mA and/or kV according to patient size, and/or use of iterative reconstruction technique. COMPARISON: No relevant prior studies available. FINDINGS: No acute intracranial hemorrhage. No midline shift or mass effect. The territorial dur[place]-white matter differentiation is maintained throughout. Age-related cerebral volume loss. Periventricular and subcortical white matter hypoattenuation, consistent with chronic microangiopathy. The visualized orbits appear grossly unremarkable. The calvarium is intact. The visualized paranasal sinuses and mastoid air cells are grossly clear. IMPRESSION: No acute intracranial hemorrhage, midline shift, or mass effect. EXAM: CT Cervical Spine Without Intravenous Contrast CLINICAL HISTORY: ITS.REASON CT Reason: Trauma TECHNIQUE: Axial computed tomography images of the cervical spine without intravenous contrast. CTDI is 10.9 mGy and DLP is 294.6 mGy-cm. This CT exam was performed using one or more of the following dose reduction techniques: automated exposure control, adjustment of the mA and/or kV according to patient size, and/or use of iterative reconstruction technique. COMPARISON: No relevant prior studies available. FINDINGS: The vertebral body heights are maintained. The craniocervical junction is intact. The atlanto-dens interval is maintained. The dens is intact. There is no spondylolisthesis. Multilevel cervical spondylosis and degenerative disc disease. Straightening of the cervical lordosis. IMPRESSION: No acute fracture or subluxation of the cervical spine.
[2024-10-14 01:56] LABS: Appearance,Urine Clear (Clear); Bilirubin,Urine Negative (Negative); Blood,Urine Negative (Negative); Color,Urine Colorless; Glucose,Urine (UA) 4+ (Negative); Ketones,Urine Negative (Negative); Leukocyte Esterase,Urine Negative (Negative); Nitrite,Urine Negative (Negative); Protein,Urine Negative (Negative); Specific Gravity,Urine 1.028 (1.001-1.035); Urobilinogen,Urine <2.0 mg/dL (<2.0)
[2024-10-14 02:21] LABS: Influenza A Not Detected (Not Detectd); Influenza B Not Detected (Not Detectd); RSV Not Detected (Not Detectd)
[2024-10-14] MEDS: SODIUM CHLORIDE 0.9% 1,000 ML IV ONE ×2 (02:25→06:11)
[2024-10-14] MEDS: INSULIN REGULAR 100 UNIT in SODIUM CHLORIDE 0.9% 100 ML IV SCH (03:02)
[2024-10-14] MEDS: INSULIN REGULAR BOLUS (FROM DRIP BAG) IV ONE (03:04)
[2024-10-14 03:14] LABS: Glucose,Whole Blood 376 mg/dL (70-110)
[2024-10-14 03:17] LABS: VBG PH 7.36 (7.31-7.41)
--- NOTE | 2024-10-14 03:47 | ED ---
General Adult HPI - General Chief complaint: Recheck/Abnormal Lab/Rx Stated complaint: Hyperglycemia Time Seen by Provider: 10/13/24 23:53 Source: EMS Mode of arrival: EMS - History of Present Illness Initial comments: Patient is a 68-year-old female past medical history of diabetes, hypertension, hyperlipidemia presenting today for generalized weakness, fall and behavioral issues at home. History is provided by patient's and son. Patient currently lives with her , and has had progressively worsening dementia. Patient's attempted to care for her at home however she has been refusing her medications for at least a month now. She does not take any of her diabetic medications or any other medications. Patient has had worsening generalized weakness and today when she tried to get up out of her recliner she fell forward and hit the front of her head on a speaker. She did not lose consciousness and is currently behaving at her normal baseline. She is not on blood thinners. The patient herself currently denies any complaints. Additionally, patient was noted to be severely hyperglycemic. Family states that she does not remember when she eats, so patient will do things such as eating "12 bananas in an evening" because she will not remember what she ate earlier. - Related Data Home Medications Medication Instructions Recorded Confirmed Bimatoprost [Lumigan 0.01% Ophth 1 drop BOTH EYES HS 02/01/18 10/14/24 Soln] metFORMIN HCL [Glucophage] 1,000 mg PO BID 02/01/18 10/14/24 Celecoxib [CeleBREX] 200 mg PO DAILY 06/18/24 10/14/24 Insulin Aspart [NovoLOG Flexpen] See Protocol SQ AC-TID 06/18/24 10/14/24 Donepezil HCl [Aricept] 10 mg PO DAILY 10/14/24 10/14/24 Hydrocortisone 1% Lotion 1 applic TOPICAL BID 10/14/24 10/14/24 Insulin Glargine,Hum.rec.anlog 110 units SQ HS 10/14/24 10/14/24 [Que Buitrago] Memantine [Namenda] 10 mg PO BID 10/14/24 10/14/24 Mirabegron [Myrbetriq] 50 mg PO DAILY 10/14/24 10/14/24 Repaglinide [Prandin] 0.5 mg PO DAILY 10/14/24 10/14/24 Repaglinide [Prandin] 1 mg PO HS 10/14/24 10/14/24 Spironolactone [Aldactone] 25 mg PO DAILY 10/14/24 10/14/24 Previous Rx's Medication Instructions Recorded Losartan [Cozaar] 50 mg PO DAILY #30 tab 06/20/24 Simvastatin [Zocor] 20 mg PO DAILY #0 06/20/24 Allergies Allergy/AdvReac Type Severity Reaction Status Date / Time No Known Allergies Allergy Verified 10/14/24 09:34 Review of Systems ROS Statement: Those systems with pertinent positive or pertinent negative responses have been documented in the HPI. ROS Other: All systems not noted in ROS Statement are negative. 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, bilat bunions removed Past Psychological History: No Psychological Hx Reported Smoking Status: Never smoker Past Alcohol Use History: None Reported Past Drug Use History: None Reported General Exam - General Exam Comments Initial Comments: PE: CONSTITUTIONAL: No apparent distress, well appearing SKIN: Warm, dry, no jaundice, hives or petechiae EYES: Pupils are equally round, extraocular movements intact without nystagmus, clear conjunctiva, non-icteric sclera HENT: Normocephalic, atraumatic, moist mucus membranes, oropharynx clear without exudates NECK: , Full range of motion, normal appearance, no midline spinal TTP or step offs PULMONARY: Clear to auscultation without wheezes, rhonchi, or rales, normal excursion, no accessory muscle use and no stridor CARDIOVASCULAR: Regular rate, rhythm, normal S1 and S2. No appreciated murmurs, rubs or gallops. Strong radial pulses with intact distal perfusion. No lower extremity edema GASTROINTESTINAL: Soft, active bowel sounds throughout, non-tender, non- distended, no palpable masses, no rebound or guarding. No hepatosplenomegaly MUSCULOSKELETAL: Extremities have no gross deformity, no edema, redness, or swelling. No calf swelling . No midline spinal TTP NEUROLOGIC:_a/o x 2, GCS 15, speech is clear, pt is able to identify her sons and , remembers the events of this evening, no focal neurologic deficits. Moves all extremities x 4 without motor or sensory deficit PSYCHIATRIC:[ _normal mood and affect, thought process is overall linear though is somewhat evasive about providing specifics regarding her medical history, calm and cooperative Course Vital Signs 10/13/24 10/14/24 10/14/24 23:52 02:26 06:28 Temperature 98.4 F 97.4 F L Pulse Rate 58 L 46 L 48 L Respiratory 20 18 16 Rate Blood Pressure 193/110 178/74 152/74 O2 Sat by Pulse 99 98 99 Oximetry 10/14/24 10/14/24 10/14/24 08:48 10:43 12:54 Temperature 97.5 F L Pulse Rate 49 L 63 78 Respiratory 18 18 19 Rate Blood Pressure 186/73 188/83 O2 Sat by Pulse 99 96 97 Oximetry EKG Findings - EKG Comments: EKG Findings:: Sinus bradycardia, rate 47 bpm GA interval 164 ms QT/QTc 463/425 ms, borderline left axis deviation, low voltage EKG, mild artifact present, T wave inversion lead V3 no ST elevations or depressions Medical Decision Making - Medical Decision Making Was pt. sent in by a medical professional or institution (, PA, ASSEM[employer], urgent care, hospital, or long term...) When possible be specific @ -No Did you speak to anyone other than the patient for history (EMS, parent, family, police, friend...)? What history was obtained from this source @ -No Did you review nursing and triage notes (agree or disagree)? Why? @ -I reviewed nursing and triage notes- I disagree only in that pt's family states to me pt has not been taking her meds for more likely at least a month as opposed to 1-2 weeks Were old charts reviewed (outside hosp., previous admission, EMS record, old EKG, old radiological studies, urgent care reports/EKG's, long term records)? Report findings @ -Medical records reviewed- reviewed home med list Differential Diagnosis (chest pain, altered mental status, abdominal pain women, abdominal pain men, vaginal bleeding, weakness, fever, dyspnea, syncope, headache, dizziness, GI bleed, back pain, seizure, CVA, palpatations, mental health, musculoskeletal)? @Differential Weakness: Hypoglycemia, shock, sepsis, hyponatremia, anemia, infection, adverse medicine reaction, overdose, stroke, this is not meant to be an all-inclusive list. In regards to hyperglycemia, top differentials include HHS, DKA, uncontrolled hyperglycemia 2/2 medication noncompliance and dietary intake EKG interpreted by me (3pts min.). @ -As above X-rays interpreted by me (1pt min.). @ -None done CT interpreted by me (1pt min.). @ -I personally reviewed CT brain, CT C-spine I see no evidence of fracture or hemorrhage on CT brain, I see no evidence of fracture or malalignment on CT C- spine I agree with radiologist interpretation U/S interpreted by me (1pt. min.). @ -None done What testing was considered but not performed or refused? (CT, X-rays, U/S, labs)? Why? @ -None What meds were considered but not given or refused? Why? @ -None Did you discuss the management of the patient with other professionals (professionals i.e. , PA, [employer], lab, RT, psych nurse, geriatric social worker, weigh and charge worker, teacher, community service officer, employment case manager)? Give summary @ -No Was smoking cessation discussed for >3mins.? @ -No Was critical care preformed (if so, how long)? @Yes 45 minutes Were there social determinants of health that impacted care today? How? (Homelessness, low income, unemployed, alcoholism, drug addiction, transportation, low edu. Level, literacy, decrease access to med. care, long term, rehab)? @ -No Was there de-escalation of care discussed even if they declined (Discuss DNR or withdrawal of care, Hospice)? @ -No What co-morbidities impacted this encounter? (DM, HTN, Smoking, COPD, CAD, Cancer, CVA, ARF, Chemo, Hep., AIDS, mental health diagnosis, sleep apnea, morbid obesity)? @ -Dementia, DM Was patient admitted / discharged? Hospital course, mention meds given and route, prescriptions, significant lab abnormalities, going to OR and other pertinent info. Admission-patient is a 68-year-old female history of dementia, hypertension, hyperlipidemia, thyroid disorder presenting today for evaluation after a fall, head injury, hyperglycemia and family difficulty caring for her at home. On my assessment she is calm and cooperative, she does have stool on her hands, feet and shirt. She is AO x2, no signs of head trauma or other injuries present. Patient able to identify and sons at bedside, states she does not take her medications because her is in control of them. Discussed with pt and family, plan for labs, imaging, and anticipated admission. They are agreeable with POC. Labs significant for glucose of greater than 600, positive acetone though no anion gap. VBG shows no acidosis. Insulin drip and bolus were ordered due to concerns for HHS vs uncontrolled hyperglycemia. Patient however, is not altered, so does not meet full criteria for dx of HHS and is in stable condition and so will be admitted to step down. While awaiting bed placement, patient's blood glucose came down to 156. Insulin drip cancelled so as not to overcorrect. Blood glucose will continue to be monitored every hour. Case discussed with. Dr. Isaac, who kindly accepted pt for admission. Undiagnosed new problem with uncertain prognosis? @ -No Drug Therapy requiring intensive monitoring for toxicity (Heparin, Nitro, Insulin, Cardizem)? @ -Patient was initially on insulin drip however while boarding in the emergency department blood glucose became controlled so insulin drip was discontinued. Were any procedures done? @ -No Diagnosis/symptom? @fall, uncontrolled hyperglycemia, medication noncompliance, generalized weakne ss Acute, or Chronic, or Acute on Chronic? @Acute Uncomplicated (without systemic symptoms) or Complicated (systemic symptoms)? @Complicated Side effects of treatment? @ -No Exacerbation, Progression, or Severe Exacerbation? @ -No Poses a threat to life or bodily function? How? (Chest pain, [place], [place], pneumonia, PE, COPD, DKA, ARF, appy, cholecystitis, CVA, Diverticulitis, Homicidal, Suicidal, threat to staff... and all critical care pts) @ -Yes, potentially if hyperglycemia left unaddressed could progress to HHS or DKA - Lab Data Result diagrams: 10/13/24 23:58 10/14/24 06:36 Lab Results 10/13/24 10/13/24 10/13/24 Range/Units 23:58 23:58 23:58 WBC 6.6 (3.8-10.6) k/uL RBC 4.58 (3.80-5.40) m/uL Hgb 13.9 (11.4-16.0) gm/dL Hct 43.4 (34.0-46.0) % MCV 94.9 (80.0-100.0) fL MCH 30.3 (25.0-35.0) pg MCHC 32.0 (31.0-37.0) g/dL RDW 12.2 (11.5-15.5) % Plt Count 270 (150-450) k/uL MPV 7.4 Neutrophils % 64 % Lymphocytes % 27 % Monocytes % 5 % Eosinophils % 2 % Basophils % 1 % Neutrophils # 4.3 (1.3-7.7) k/uL Lymphocytes # 1.8 (1.0-4.8) k/uL Monocytes # 0.3 (0-1.0) k/uL Eosinophils # 0.1 (0-0.7) k/uL Basophils # 0.1 (0-0.2) k/uL PT 10.1 (10.0-12.5) sec INR 0.9 (<1.2) APTT 22.1 (22.0-30.0) sec VBG pH (7.31-7.41) VBG pCO2 (37-51) mmHg VBG HCO3 (24-28) mmol/L Sodium 132 L (137-145) mmol/L Potassium 4.8 (3.5-5.1) mmol/L Chloride 99 (98-107) mmol/L Carbon Dioxide 25 (22-30) mmol/L Anion Gap 8 mmol/L BUN 13 (7-17) mg/dL Creatinine 0.45 L (0.52-1.04) mg/dL Est GFR (CKD-EPI)AfAm >90 (>60 ml/min/1.73 sqM) Est GFR (CKD-EPI)NonAf >90 (>60 ml/min/1.73 sqM) Glucose 500 H (74-99) mg/dL POC Glucose (mg/dL) (70-110) mg/dL POC Glu Shipping And Receiving Clerk ID Calcium 9.2 (8.4-10.2) mg/dL Phosphorus 4.0 (2.5-4.5) mg/dL Magnesium 1.8 (1.6-2.3) mg/dL Total Bilirubin 0.6 (0.2-1.3) mg/dL AST 20 (14-36) U/L ALT 19 (4-34) U/L Alkaline Phosphatase 84 (38-126) U/L Creatine Kinase 53 (30-135) U/L Total Protein 6.7 (6.3-8.2) g/dL Albumin 3.9 (3.5-5.0) g/dL Urine Color Urine Appearance (Clear) Urine pH (5.0-8.0) Ur Specific [place] (1.001-1.035) Urine Protein (Negative) Urine Glucose (UA) (Negative) Urine Ketones (Negative) Urine Blood (Negative) Urine Nitrite (Negative) Urine Bilirubin (Negative) Urine Urobilinogen (<2.0) mg/dL Ur Leukocyte Esterase (Negative) Serum Alcohol <10 mg/dL Acetone, Qual Positive (Negative) Influenza Type A (PCR) (Not Detectd) Influenza Type B (PCR) (Not Detectd) RSV (PCR) (Not Detectd) SARS-CoV-2 (PCR) (Not Detectd) 10/14/24 10/14/24 10/14/24 Range/Units 00:01 00:11 01:14 WBC (3.8-10.6) k/uL RBC (3.80-5.40) m/uL Hgb (11.4-16.0) gm/dL Hct (34.0-46.0) % MCV (80.0-100.0) fL MCH (25.0-35.0) pg MCHC (31.0-37.0) g/dL RDW (11.5-15.5) % Plt Count (150-450) k/uL MPV Neutrophils % % Lymphocytes % % Monocytes % % Eosinophils % % Basophils % % Neutrophils # (1.3-7.7) k/uL Lymphocytes # (1.0-4.8) k/uL Monocytes # (0-1.0) k/uL Eosinophils # (0-0.7) k/uL Basophils # (0-0.2) k/uL PT (10.0-12.5) sec INR (<1.2) APTT (22.0-30.0) sec VBG pH (7.31-7.41) VBG pCO2 (37-51) mmHg VBG HCO3 (24-28) mmol/L Sodium (137-145) mmol/L Potassium (3.5-5.1) mmol/L Chloride (98-107) mmol/L Carbon Dioxide (22-30) mmol/L Anion Gap mmol/L BUN (7-17) mg/dL Creatinine (0.52-1.04) mg/dL Est GFR (CKD-EPI)AfAm (>60 ml/min/1.73 sqM) Est GFR (CKD-EPI)NonAf (>60 ml/min/1.73 sqM) Glucose (74-99) mg/dL POC Glucose (mg/dL) >600 H* (70-110) mg/dL POC Glu Shipping And Receiving Clerk ID Gómez Pereyra Calcium (8.4-10.2) mg/dL Phosphorus (2.5-4.5) mg/dL Magnesium (1.6-2.3) mg/dL Total Bilirubin (0.2-1.3) mg/dL AST (14-36) U/L ALT (4-34) U/L Alkaline Phosphatase (38-126) U/L Creatine Kinase (30-135) U/L Total Protein (6.3-8.2) g/dL Albumin (3.5-5.0) g/dL Urine Color Colorless Urine Appearance Clear (Clear) Urine pH 6.0 (5.0-8.0) Ur Specific [place] 1.028 (1.001-1.035) Urine Protein Negative (Negative) Urine Glucose (UA) 4+ H (Negative) Urine Ketones Negative (Negative) Urine Blood Negative (Negative) Urine Nitrite Negative (Negative) Urine Bilirubin Negative (Negative) Urine Urobilinogen <2.0 (<2.0) mg/dL Ur Leukocyte Esterase Negative (Negative) Serum Alcohol mg/dL Acetone, Qual (Negative) Influenza Type A (PCR) Not Detected (Not Detectd) Influenza Type B (PCR) Not Detected (Not Detectd) RSV (PCR) Not Detected (Not Detectd) SARS-CoV-2 (PCR) Not Detected (Not Detectd) 10/14/24 10/14/24 10/14/24 Range/Units 02:55 03:10 04:00 WBC (3.8-10.6) k/uL RBC (3.80-5.40) m/uL Hgb (11.4-16.0) gm/dL Hct (34.0-46.0) % MCV (80.0-100.0) fL MCH (25.0-35.0) pg MCHC (31.0-37.0) g/dL RDW (11.5-15.5) % Plt Count (150-450) k/uL MPV Neutrophils % % Lymphocytes % % Monocytes % % Eosinophils % % Basophils % % Neutrophils # (1.3-7.7) k/uL Lymphocytes # (1.0-4.8) k/uL Monocytes # (0-1.0) k/uL Eosinophils # (0-0.7) k/uL Basophils # (0-0.2) k/uL PT (10.0-12.5) sec INR (<1.2) APTT (22.0-30.0) sec VBG pH 7.36 (7.31-7.41) VBG pCO2 47 (37-51) mmHg VBG HCO3 26 (24-28) mmol/L Sodium (137-145) mmol/L Potassium (3.5-5.1) mmol/L Chloride (98-107) mmol/L Carbon Dioxide (22-30) mmol/L Anion Gap mmol/L BUN (7-17) mg/dL Creatinine (0.52-1.04) mg/dL Est GFR (CKD-EPI)AfAm (>60 ml/min/1.73 sqM) Est GFR (CKD-EPI)NonAf (>60 ml/min/1.73 sqM) Glucose (74-99) mg/dL POC Glucose (mg/dL) 376 H 361 H (70-110) mg/dL POC Glu Shipping And Receiving Clerk ID Caya Adelaide Caya Adelaide Calcium (8.4-10.2) mg/dL Phosphorus (2.5-4.5) mg/dL Magnesium (1.6-2.3) mg/dL Total Bilirubin (0.2-1.3) mg/dL AST (14-36) U/L ALT (4-34) U/L Alkaline Phosphatase (38-126) U/L Creatine Kinase (30-135) U/L Total Protein (6.3-8.2) g/dL Albumin (3.5-5.0) g/dL Urine Color Urine Appearance (Clear) Urine pH (5.0-8.0) Ur Specific [place] (1.001-1.035) Urine Protein (Negative) Urine Glucose (UA) (Negative) Urine Ketones (Negative) Urine Blood (Negative) Urine Nitrite (Negative) Urine Bilirubin (Negative) Urine Urobilinogen (<2.0) mg/dL Ur Leukocyte Esterase (Negative) Serum Alcohol mg/dL Acetone, Qual (Negative) Influenza Type A (PCR) (Not Detectd) Influenza Type B (PCR) (Not Detectd) RSV (PCR) (Not Detectd) SARS-CoV-2 (PCR) (Not Detectd) Disposition Clinical Impression: Fall, Uncontrolled diabetes mellitus with hyperglycemia Disposition: ADMITTED IP TO THIS HOSP Condition: Stable
[2024-10-14 04:13] LABS: Glucose,Whole Blood 361 mg/dL (70-110)
[2024-10-14] MEDS ORDERED: MAG HYDROX/AL HYDROX/SIMETH 30 ML CUP PO PRN (04:35)
[2024-10-14] MEDS ORDERED: NALOXONE 0.4 MG/ML 1 ML VIAL IV PRN (04:35)
[2024-10-14] MEDS ORDERED: ACETAMINOPHEN TAB 325 MG TAB PO PRN ×2 (04:35→08:56)
[2024-10-14] MEDS ORDERED: ONDANSETRON 4 MG/2 ML VIAL IVP PRN (04:35)
[2024-10-14] MEDS ORDERED: bisacodyL 5 MG TABLET.DR PO PRN (04:35)
[2024-10-14] MEDS ORDERED: CALCIUM CARBONATE 500 MG CHEWABLE PO PRN (04:35)
[2024-10-14 05:10] LABS: Glucose,Whole Blood 149 mg/dL (70-110)
[2024-10-14] MEDS: SODIUM CHLORIDE 0.9% 1,000 ML IV SCH (06:11)
[2024-10-14] MEDS: D5-0.45% NACL WITH KCL 20MEQ/L 1,000 ML IV SCH (06:12)
[2024-10-14 06:18] LABS: Glucose,Whole Blood 110 mg/dL (70-110)
[2024-10-14 07:40] LABS: African American GFR (CKD) >90 (>60 ml/min/1.73 sqM); Anion Gap 7 mmol/L; Blood Urea Nitrogen 12 mg/dL (7-17); Carbon Dioxide 23 mmol/L (22-30); Chloride 107 mmol/L (98-107); Glucose 126 mg/dL (74-99); Non-African American GFR(CKD) >90 (>60 ml/min/1.73 sqM); Potassium 3.8 mmol/L (3.5-5.1); Sodium 137 mmol/L (137-145)
[2024-10-14] MEDS: MELOXICAM 7.5 MG TAB PO SCH (08:13)
[2024-10-14] MEDS: metFORMIN 500 MG TAB PO SCH (08:14)
[2024-10-14] MEDS ORDERED: ENOXAPARIN 40 MG/0.4 ML SYRINGE SQ SCH ×2 (09:00)
[2024-10-14] MEDS ORDERED: REPAGLINIDE 1 MG TAB PO SCH (09:00)
[2024-10-14] MEDS ORDERED: TIMOLOL 0.5% OPHTH DROPS 5 ML BTL BOTH EYES SCH (09:00)
[2024-10-14] MEDS ORDERED: DEXTROSE 50% SYRINGE 50 ML IVP PRN ×2 (09:03)
[2024-10-14] MEDS: ENOXAPARIN 40 MG/0.4 ML SYRINGE SQ SCH (09:56)
[2024-10-14] MEDS: ASPIRIN 81 MG PO SCH (09:56)
[2024-10-14] MEDS: FAMOTIDINE 20 MG TAB PO SCH (09:57)
[2024-10-14] MEDS: SPIRONOLACTONE 25 MG TAB PO SCH (09:57)
[2024-10-14] MEDS: ATORVASTATIN 10 MG TAB PO SCH (09:57)
[2024-10-14] MEDS: REPAGLINIDE 1 MG TAB PO SCH (10:13)
[2024-10-14] MEDS: LOSARTAN-HCTZ 50-12.5 MG 1 EACH TAB PO SCH (10:41)
[2024-10-14 12:03] LABS: Glucose,Whole Blood 237 mg/dL (70-110)
[2024-10-14] MEDS: INSULIN LISPRO (HumaLOG) 100 UNIT/ML 10 mL VL SQ SCH (12:14)
--- NOTE | 2024-10-14 15:02 | P.HPIM ---
History of Present Illness H&P Date: 10/14/24 Chief Complaint: Mechanical fall Patient is a 68-year-old female with a history of dementia, type 2 diabetes mellitus, hyperlipidemia, hypertension, thyroid disorder presented to the ED for generalized weakness, fall, and behavioral issues at home. 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 Patient has a progressively worsening dementia. Patient's is attempting to take care of her however patient has not been taking her home meds for at least a month now including her diabetic medications. Earlier yesterday patient was feeling extremely weak and when she was trying to get up from her recliner she felt dizzy and lost her balance and fell forward hitting her head. She was assisted by her who was present by her side. Patient did not lose consciousness and is currently at baseline mentation. Patient reports that this is her third fall within the last 6 months with previous fall happened in a similar way. She is not on any blood thinner. Patient is also following cardiology outpatient with her recent appointment was a week ago as per patient everything was up-to-date. Otherwise, patient denies shortness of breath, chest pain, abdominal pain, diarrhea, constipation, dysuria, urgency or frequency of urination. Laboratory evaluation in the ED showed that she is severely hyperglycemic. Initial laboratory evaluation shows serum glucose of 500, venous blood gas pH 7.36, pCO2 47, HCO3 26, WBC 6.6, hemoglobin 13.9, platelet count 270, sodium 132, potassium 4.8, chloride 99, bicarb 25, BUN 13, creatinine 0.45, BUN 13, creatinine 0.45, Urinalysis positive for glycosuria. Acetone positive. Respiratory viral serol ogies negative. Repeat chemistry shows sodium 137, potassium 3.8, chloride 107, bicarb 23, BUN 12, creatinine 0.37, glucose 126 CT head and cervical spine shows no acute fracture or subluxation of the cervical spine and no acute intracranial hemorrhage with no midline shift or mass effect noted. EKG shows sinus bradycardia with ventricular rate of 47 bpm, MT interval 164 ms, QRS duration 101 ms, QTc 427 ms, low voltage EKG noted with with nonspecific ST to T wave changes noted. Review of systems: Pertinent positives and negatives as discussed in HPI, a complete review of systems was performed and all other systems are negative. Social history: Non-smoker, nondrinker, no use of illicit drugs Physical examination: Vital signs reviewed General: non toxic, no distress, appears at stated age, obese Derm: no unusual rashes/lesions, warm Head: atraumatic, normocephalic, symmetric Eyes: EOMI, no lid lag, anicteric sclera, pupils equal round reactive to light ENT: Nose and ears atraumatic Neck: No cervical lymphadenopathy, trachea midline, supple Mouth: no lip lesion, mucus membranes moist Cardiovascular: S1S2 reg, no murmur, positive dorsalis pedis pulse bilateral, no edema Lungs: CTA bilateral, no rhonchi, no rales, no accessory muscle use Abdominal: soft, nontender to palpation, no guarding Ext: muscle strength 5 out of 5 in all 4 extremities grossly, no gross muscle atrophy, no contractures, Neuro: CN II-XI grossly intact, no gross focal neuro deficits Psych: Alert, oriented, appropriate affect Assessment/Plan: This is a Patient is a 68-year-old female with a history of dementia, type 2 diabetes mellitus, hyperlipidemia, hypertension, thyroid disorder presented to the ED for generalized weakness, fall, and behavioral issues at home.. Case was discussed with the Emergency Room provider and decision was made to admit the patient for generalized weakness and fall. Labs and imagings: Initial laboratory evaluation shows serum glucose of 500, venous blood gas pH 7.36, pCO2 47, HCO3 26, WBC 6.6, hemoglobin 13.9, platelet count 270, sodium 132, potassium 4.8, chloride 99, bicarb 25, BUN 13, creatinine 0.45, BUN 13, creatinine 0.45, Urinalysis positive for glycosuria. Acetone positive. Respiratory viral serologies negative. Repeat chemistry shows sodium 137, potassium 3.8, chloride 107, bicarb 23, BUN 12, creatinine 0.37, glucose 126 CT head and cervical spine shows no acute fracture or subluxation of the cervical spine and no acute intracranial hemorrhage with no midline shift or mass effect noted. EKG shows sinus bradycardia with ventricular rate of 47 bpm, MT interval 164 ms, QRS duration 101 ms, QTc 427 ms, low voltage EKG noted with with nonspecific ST to T wave changes noted. Active: #Hyperglycemia in the setting of uncontrolled type 2 diabetes melitis #Generalized weakness with mechanical fall likely in the setting of uncontrolled type 2 diabetes mellitus #Noncompliant with medications Patient received bolus of regular insulin 8.2 units once in ED Received 2 L of IV normal saline boluses in the ED Resume metformin 1000 mg p.o. twice daily with meals Start patient on Lantus 25 units at bedtime and sliding scale insulin ACHS Monitor for hypoglycemia Continue cardiac telemetry Consult dietitian Consult PT/OT Consult social service Order orthostatic vitals #Hypertensive urgency Continue with Hyzaar 100-25 mg p.o. once daily #Sinus bradycardia Continue cardiac telemetry Humalog Chronic: Dementia, hyperlipidemia, hyperlipidemia Resume home medications as appropriate DVT prophylaxis: Lovenox 40 mg subcu daily GI prophylaxis: Famotidine 20 mg p.o. twice daily F: None E: Replete as N: N.p.o. A: Ambulatory The patient is admitted with an anticipated less than than 2 midnight stay for evaluation of severe hyperglycemia CODE STATUS: Full code Discussed with: Patient Anticipated discharge place: Pending clinical course Dictation was produced using [employer] dictation software. Please excuse any grammatical, word or spelling errors. 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, bilat bunions removed Past Psychological History: No Psychological Hx Reported Smoking Status: Never smoker Past Alcohol Use History: None Reported Past Drug Use History: None Reported Medications and Allergies Home Medications Medication Instructions Recorded Confirmed Type Bimatoprost [Lumigan 0.01% Ophth 1 drop BOTH EYES HS 02/01/18 10/14/24 History Soln] metFORMIN HCL [Glucophage] 1,000 mg PO BID 02/01/18 10/14/24 History Celecoxib [CeleBREX] 200 mg PO DAILY 06/18/24 10/14/24 History Insulin Aspart [NovoLOG Flexpen] See Protocol SQ AC-TID 06/18/24 10/14/24 History Losartan [Cozaar] 50 mg PO DAILY #30 tab 06/20/24 10/14/24 Rx Simvastatin [Zocor] 20 mg PO DAILY #0 06/20/24 10/14/24 Rx Donepezil HCl [Aricept] 10 mg PO DAILY 10/14/24 10/14/24 History Hydrocortisone 1% Lotion 1 applic TOPICAL BID 10/14/24 10/14/24 History Insulin Glargine,Hum.rec.anlog 110 units SQ HS 10/14/24 10/14/24 History [Que Buitrago] Memantine [Namenda] 10 mg PO BID 10/14/24 10/14/24 History Mirabegron [Myrbetriq] 50 mg PO DAILY 10/14/24 10/14/24 History Repaglinide [Prandin] 0.5 mg PO DAILY 10/14/24 10/14/24 History Repaglinide [Prandin] 1 mg PO HS 10/14/24 10/14/24 History Spironolactone [Aldactone] 25 mg PO DAILY 10/14/24 10/14/24 History Allergies Allergy/AdvReac Type Severity Reaction Status Date / Time No Known Allergies Allergy Verified 10/14/24 09:34 Physical Exam Vitals: Vital Signs Temp Pulse Resp BP Pulse Ox 10/14/24 06:28 97.4 F L 48 L 16 152/74 99 10/14/24 02:26 46 L 18 178/74 98 10/13/24 23:52 98.4 F 58 L 20 193/110 99 Intake and Output 10/13/24 10/14/24 10/14/24 22:59 06:59 14:59 Intake Total 9.758 Balance 9.758 Intake: Intake, IV Titration 9.758 Amount Insulin Regular 100 unit 9.758 In Sodium Chloride 0.9% 100 ml @ 0.1 UNITS/KG/HR 8.246 mls/hr IV .[id number] [facility] Rx#:[id number] Other: Weight 81.647 kg Results CBC & Chem 7: 10/13/24 23:58 10/14/24 06:36 Labs: Abnormal Lab Results - Last 24 Hours (Table) 10/13/24 10/14/24 10/14/24 Range/Units 23:58 00:01 00:11 Sodium 132 L (137-145) mmol/L Creatinine 0.45 L (0.52-1.04) mg/dL Glucose 500 H (74-99) mg/dL POC Glucose (mg/dL) >600 H* (70-110) mg/dL Urine Glucose (UA) 4+ H (Negative) 10/14/24 10/14/24 10/14/24 Range/Units 03:10 04:00 05:07 Sodium (137-145) mmol/L Creatinine (0.52-1.04) mg/dL Glucose (74-99) mg/dL POC Glucose (mg/dL) 376 H 361 H 149 H (70-110) mg/dL Urine Glucose (UA) (Negative) 10/14/24 Range/Units 06:36 Sodium (137-145) mmol/L Creatinine 0.37 L (0.52-1.04) mg/dL Glucose 126 H (74-99) mg/dL POC Glucose (mg/dL) (70-110) mg/dL Urine Glucose (UA) (Negative)
[2024-10-14 17:12] LABS: Glucose,Whole Blood 355 mg/dL (70-110)
[2024-10-14 21:37] LABS: Glucose,Whole Blood 203 mg/dL (70-110)
[2024-10-14] MEDS: INSULIN GLARGINE (LANTUS) 100 UNIT/ML SYR SQ SCH (21:40)
[2024-10-14] MEDS: HALOPERIDOL LACTATE 5 MG/ML 1 ML VIAL IM STA (21:41)
[2024-10-14] MEDS: MEMANTINE 10 MG TAB PO SCH (23:34)
[2024-10-15] MEDS ORDERED: HALOPERIDOL LACTATE 5 MG/ML 1 ML VIAL IVP PRN (05:23)
[2024-10-15] MEDS: HALOPERIDOL LACTATE 5 MG/ML 1 ML VIAL IM PRN (05:33)
[2024-10-15 06:27] LABS: Glucose,Whole Blood 275 mg/dL (70-110)
[2024-10-15] MEDS: NON FORMULARY DRUG (Mirabegron [Myrbetriq] 50 MG Tab.Er.24h) PO SCH (08:12)
[2024-10-15] MEDS: INSULIN GLARGINE (LANTUS) 100 UNIT/ML SYR SQ SCH (08:36)
[2024-10-15 09:46] LABS: Basophils # (A) 0.1 k/uL (0-0.2); Basophils % (A) 1 %; Eosinophils # (A) 0.2 k/uL (0-0.7); Eosinophils % (A) 2 %; HCT 44.8 % (34.0-46.0); HGB 14.5 gm/dL (11.4-16.0); Lymphocytes # (A) 2.5 k/uL (1.0-4.8); Lymphocytes % (A) 28 %; MCH 30.4 pg (25.0-35.0); MCHC 32.4 g/dL (31.0-37.0); MCV 93.9 fL (80.0-100.0); Mean Platelet Volume 7.3; Monocytes # (A) 0.5 k/uL (0-1.0); Monocytes % (A) 5 %; Neutrophils # (A) 5.5 k/uL (1.3-7.7); Neutrophils % (A) 63 %; Platelet Count 283 k/uL (150-450); RBC 4.78 m/uL (3.80-5.40); RDW 12.4 % (11.5-15.5); WBC 8.8 k/uL (3.8-10.6)
[2024-10-15 10:26] LABS: African American GFR (CKD) >90 (>60 ml/min/1.73 sqM); Anion Gap 11 mmol/L; Blood Urea Nitrogen 11 mg/dL (7-17); Calcium 10.2 mg/dL (8.4-10.2); Carbon Dioxide 23 mmol/L (22-30); Chloride 101 mmol/L (98-107); Glucose 164 mg/dL (74-99); Magnesium 1.5 mg/dL (1.6-2.3); Non-African American GFR(CKD) >90 (>60 ml/min/1.73 sqM); Potassium 3.5 mmol/L (3.5-5.1); Sodium 135 mmol/L (137-145)
--- NOTE | 2024-10-15 10:42 | P.PN ---
Subjective Progress Note Date: 10/15/24 Hospital Course: Patient is a 68-year-old female with a history of dementia, type 2 diabetes mellitus, hyperlipidemia, hypertension, thyroid disorder presented to the ED for generalized weakness, fall, and behavioral issues at home. 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 Patient has a progressively worsening dementia. Patient's is attempting to take care of her however patient has not been taking her home meds for at least a month now including her diabetic medications. Earlier yesterday patient was feeling extremely weak and when she was trying to get up from her recliner she felt dizzy and lost her balance and fell forward hitting her head. She was assisted by her who was present by her side. Patient did not lose consciousness and is currently at baseline mentation. Patient reports that this is her third fall within the last 6 months with previous fall happened in a similar way. She is not on any blood thinner. Patient is also following cardiology outpatient with her recent appointment was a week ago as per patient everything was up-to-date. Otherwise, patient denies shortness of breath, chest pain, abdominal pain, diarrhea, constipation, dysuria, urgency or frequency of urination. Laboratory evaluation in the ED showed that she is severely hyperglycemic. Initial laboratory evaluation shows serum glucose of 500, venous blood gas pH 7.36, pCO2 47, HCO3 26, WBC 6.6, hemoglobin 13.9, platelet count 270, sodium 132, potassium 4.8, chloride 99, bicarb 25, BUN 13, creatinine 0.45, BUN 13, creatinine 0.45, Urinalysis positive for glycosuria. Acetone positive. Respiratory viral serologies negative. Repeat chemistry shows sodium 137, potassium 3.8, chloride 107, bicarb 23, BUN 12, creatinine 0.37, glucose 126 CT head and cervical spine shows no acute fracture or subluxation of the cervical spine and no acute intracranial hemorrhage with no midline shift or mass effect noted. EKG shows sinus bradycardia with ventricular rate of 47 bpm, NM interval 164 ms, QRS duration 101 ms, QTc 427 ms, low voltage EKG noted with with nonspecific ST to T wave changes noted. Subjective: Patient seen and examined at the bedside. Patient is episodes of acute psychosis with agitation. Patient is currently on restraints and has a sitter. She did receive IV Haldol yesterday night and early this morning. She continues to be slightly confused with AAO x 1. Otherwise, patient is not complaining of any pain, shortness of breath, chest pain, nausea, vomiting. All Systems reviewed and pertinent positives and negatives noted in HPI, all other symptoms are negative Objective: Vital signs reviewed. General: On physical restraints with sitter beside her continues to be mildly confused and agitated. Derm: no unusual rashes/lesions, warm Head: atraumatic, normocephalic, symmetric Eyes: EOMI, no lid lag, anicteric sclera, pupils equal round reactive to light ENT: Nose and ears atraumatic Neck: No cervical lymphadenopathy, trachea midline, supple Mouth: no lip lesion, mucus membranes moist Cardiovascular: S1S2 reg, no murmur, positive dorsalis pedis pulse bilateral, no edema Lungs: CTA bilateral, no rhonchi, no rales, no accessory muscle use Abdominal: soft, nontender to palpation, no guarding Ext: muscle strength 5 out of 5 in all 4 extremities grossly, no gross muscle atrophy, no contractures, Neuro: CN II-XI grossly intact, no gross focal neuro deficits Psych: AAO x 1 Data reviewed today: Labs: WBC 8.8, hemoglobin 14.5, sodium 135, potassium 3.5, magnesium 1.5, BUN 11, creatinine 0.43 Images: No new imaging Assessment and Plan: Active: #Hyperglycemia in the setting of uncontrolled type 2 diabetes melitis #Generalized weakness with mechanical fall likely in the setting of uncontrolled type 2 diabetes mellitus #Noncompliant with medications Patient received bolus of regular insulin 8.2 units once in ED Received 2 L of IV normal saline boluses in the ED Resume metformin 1000 mg p.o. twice daily with meals Start patient on Lantus 25 units in morning and evening and sliding scale insulin ACHS Monitor for hypoglycemia Continue cardiac telemetry Consult dietitian Consult PT/OT Consult social service; patient likely to be discharged to SNF Order orthostatic vitals #Hypertensive urgency Continue with Hyzaar 100-25 mg p.o. once daily #Sinus bradycardia Continue cardiac telemetry #Delirium Haldol 1 mg IM every 6 hours as needed Restraints as needed transfer to #Hypomagnesemia Order 2 g of IV magnesium Repeat magnesium in tomorrow a.m. Chronic: Dementia, hyperlipidemia, hyperlipidemia - Resume home medications as appropriate DVT prophylaxis: Lovenox 40 mg subcu daily GI prophylaxis: Famotidine 20 mg p.o. twice daily F: None E: Replete as N: N.p.o. A: Ambulatory CODE STATUS: Full code Discussed with: Patient Anticipated discharge place: Pending clinical course Dictation was produced using [employer] dictation software. Please excuse any grammatical, word or spelling errors. Attestation: I have personally seen and examined the patient with Resident, reviewed the documentation and participated and agree with the assessment and plan as written. Ren Ramirez MD Objective - Vital Signs Vital signs: Vital Signs Temp 97.5 F L 10/14/24 08:48 Pulse 62 10/15/24 07:15 Resp 18 10/15/24 07:15 BP 175/78 10/15/24 07:15 Pulse Ox 98 10/15/24 07:15 FiO2 - Labs CBC & Chem 7: 10/16/24 05:04 10/16/24 05:04 Labs: Abnormal Lab Results - Last 24 Hours (Table) 10/14/24 10/14/24 10/14/24 Range/Units 12:01 17:09 21:35 Sodium (137-145) mmol/L Creatinine (0.52-1.04) mg/dL Glucose (74-99) mg/dL POC Glucose (mg/dL) 237 H 355 H 203 H (70-110) mg/dL Magnesium (1.6-2.3) mg/dL 10/15/24 10/15/24 Range/Units 06:25 09:18 Sodium 135 L (137-145) mmol/L Creatinine 0.43 L (0.52-1.04) mg/dL Glucose 164 H (74-99) mg/dL POC Glucose (mg/dL) 275 H (70-110) mg/dL Magnesium 1.5 L (1.6-2.3) mg/dL
[2024-10-15 12:14] LABS: Glucose,Whole Blood 139 mg/dL (70-110)
[2024-10-15] MEDS: MAGNESIUM SULFATE-D5W PMX 1 GM in DEXTROSE/WATER 1 100ML.BAG IVPB SCH (16:28)
[2024-10-15 16:47] LABS: Glucose,Whole Blood 230 mg/dL (70-110)
[2024-10-15 20:44] LABS: Glucose,Whole Blood 180 mg/dL (70-110)
[2024-10-16 06:28] LABS: Glucose,Whole Blood 167 mg/dL (70-110)
[2024-10-16 08:25] LABS: BUN/Creat Ratio 15.57 Ratio (12.00-20.00); Blood Urea Nitrogen 10.9 mg/dL (9.0-27.0); Carbon Dioxide 23.7 mmol/L (21.6-31.8); Chloride 101 mmol/L (96-109); Glucose 184 mg/dL (70-110); Magnesium 1.8 mg/dL (1.5-2.4); Potassium 3.7 mmol/L (3.5-5.5); Sodium 138 mmol/L (135-145)
[2024-10-16 08:55] LABS: Basophils # (A) 0.04 X 10*3/uL (0.00-0.10); Basophils % (A) 0.4 %; Eosinophils # (A) 0.13 X 10*3/uL (0.04-0.35); Eosinophils % (A) 1.4 %; HCT 43.9 % (37.2-46.3); HGB 14.6 g/dL (12.0-15.0); Lymphocytes # (A) 2.65 X 10*3/uL (0.90-5.00); Lymphocytes % (A) 29.3 %; MCH 30.5 pg (27.0-32.0); MCHC 33.3 g/dL (32.0-37.0); MCV 91.6 FL (80.0-97.0); Monocytes % (A) 7.8 %; NRBC Per 100 WBC 0 X 10*3/uL (0.00-0.01); Neutrophils # (A) 5.49 X 10*3/uL (1.80-7.70); Neutrophils % (A) 60.9 %; Platelet Count 296 X 10*3/uL (140-440); RBC 4.79 X 10*6/uL (4.10-5.20); RDW 12.4 % (11.5-14.5); WBC 9.03 X 10*3/uL (4.50-10.00)
[2024-10-16 11:40] LABS: Glucose,Whole Blood 293 mg/dL (70-110)
[2024-10-16 13:57] VITALS: BMI 30.3
--- NOTE | 2024-10-16 15:02 | P.PN ---
Subjective Progress Note Date: 10/16/24 Hospital Course: Patient is a 68-year-old female with a history of dementia, type 2 diabetes mellitus, hyperlipidemia, hypertension, thyroid disorder presented to the ED for generalized weakness, fall, and behavioral issues at home. 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 Patient has a progressively worsening dementia. Patient's is attempting to take care of her however patient has not been taking her home meds for at least a month now including her diabetic medications. Earlier yesterday patient was feeling extremely weak and when she was trying to get up from her recliner she felt dizzy and lost her balance and fell forward hitting her head. She was assisted by her who was present by her side. Patient did not lose consciousness and is currently at baseline mentation. Patient reports that this is her third fall within the last 6 months with previous fall happened in a similar way. She is not on any blood thinner. Patient is also following cardiology outpatient with her recent appointment was a week ago as per patient everything was up-to-date. Otherwise, patient denies shortness of breath, chest pain, abdominal pain, diarrhea, constipation, dysuria, urgency or frequency of urination. Laboratory evaluation in the ED showed that she is severely hyperglycemic. Initial laboratory evaluation shows serum glucose of 500, venous blood gas pH 7.36, pCO2 47, HCO3 26, WBC 6.6, hemoglobin 13.9, platelet count 270, sodium 132, potassium 4.8, chloride 99, bicarb 25, BUN 13, creatinine 0.45, BUN 13, creatinine 0.45, Urinalysis positive for glycosuria. Acetone positive. Respiratory viral serologies negative. Repeat chemistry shows sodium 137, potassium 3.8, chloride 107, bicarb 23, BUN 12, creatinine 0.37, glucose 126 CT head and cervical spine shows no acute fracture or subluxation of the cervical spine and no acute intracranial hemorrhage with no midline shift or mass effect noted. EKG shows sinus bradycardia with ventricular rate of 47 bpm, [place] interval 164 ms, QRS duration 101 ms, QTc 427 ms, low voltage EKG noted with with nonspecific ST to T wave changes noted. Subjective: Patient seen and examined at the bedside. No acute events overnight. Patient continued to have a sitter. She did receive IV Haldol early this morning. She continues to be slightly confused with AAO x 2. Otherwise, patient is not complaining of any pain, shortness of breath, chest pain, nausea, vomiting. Patient still waiting for placement in ECF. All Systems reviewed and pertinent positives and negatives noted in HPI, all other symptoms are negative Objective: Vital signs reviewed. General: Patient looks relaxed and calm, continues to have sitter beside her. Derm: no unusual rashes/lesions, warm Head: atraumatic, normocephalic, symmetric Eyes: EOMI, no lid lag, anicteric sclera, pupils equal round reactive to light ENT: Nose and ears atraumatic Neck: No cervical lymphadenopathy, trachea midline, supple Mouth: no lip lesion, mucus membranes moist Cardiovascular: S1S2 reg, no murmur, positive dorsalis pedis pulse bilateral, no edema Lungs: CTA bilateral, no rhonchi, no rales, no accessory muscle use Abdominal: soft, nontender to palpation, no guarding Ext: muscle strength 5 out of 5 in all 4 extremities grossly, no gross muscle atrophy, no contractures, Neuro: CN II-XI grossly intact, no gross focal neuro deficits Psych: AAO x 2 Data reviewed today: Labs: WBC 9.03, hemoglobin 14.6, platelet count 196, sodium 138, potassium 3.7, BUN 10.9, creatinine 0.7 glucose 184 Images: No new imaging Assessment and Plan: Active: #Hyperglycemia in the setting of uncontrolled type 2 diabetes melitis #Generalized weakness with mechanical fall likely in the setting of uncontrolled type 2 diabetes mellitus #Noncompliant with medications Continue metformin 1000 mg p.o. twice daily with meals Continue with Lantus 25 units in morning and 25 units in evening and sliding scale insulin ACHS Monitor for hypoglycemia Continue cardiac telemetry Consult dietitian Consult PT/OT Consult social service; patient likely to be discharged to SNF #Hypertensive urgency Continue with Hyzaar 100-25 mg p.o. once daily #Sinus bradycardia Continue cardiac telemetry #Delirium Haldol 1 mg IM every 6 hours as needed Restraints as needed #Hypomagnesemia, resolved Continue monitor magnesium Chronic: Dementia, hyperlipidemia, hyperlipidemia - Resume home medications as appropriate DVT prophylaxis: Lovenox 40 mg subcu daily GI prophylaxis: Famotidine 20 mg p.o. twice daily F: None E: Replete as N: N.p.o. A: Ambulatory CODE STATUS: Full code Discussed with: Patient Anticipated discharge place: Pending clinical course Attestation: I have personally seen and examined the patient with Resident, reviewed the documentation and participated and agree with the assessment and plan as written. Ren Ramirez MD Objective - Vital Signs Vital signs: Vital Signs Temp 97.8 F 10/16/24 07:20 Pulse 70 10/16/24 07:20 Resp 16 10/16/24 07:20 BP 135/79 10/16/24 07:20 Pulse Ox 98 10/16/24 07:20 FiO2 Intake & Output 10/15/24 10/16/24 10/16/24 18:59 06:59 18:59 Weight 70.5 kg 70.5 kg Other: Voiding Method Toilet # Voids 3 - Labs CBC & Chem 7: 10/16/24 05:04 10/16/24 05:04 Labs: Abnormal Lab Results - Last 24 Hours (Table) 10/15/24 10/15/24 10/15/24 Range/Units 09:18 16:44 20:42 Anion Gap (4.00-12.00) mmol/L Glucose (70-110) mg/dL POC Glucose (mg/dL) 230 H 180 H (70-110) mg/dL Hemoglobin A1c 12.9 H (<=6.0) % 10/16/24 10/16/24 10/16/24 Range/Units 05:04 06:26 11:39 Anion Gap 13.30 H (4.00-12.00) mmol/L Glucose 184 H (70-110) mg/dL POC Glucose (mg/dL) 167 H 293 H (70-110) mg/dL Hemoglobin A1c (<=6.0) %
[2024-10-16 16:43] LABS: Glucose,Whole Blood 194 mg/dL (70-110)
[2024-10-16] MEDS: ALPRAZolam 0.25 MG TAB PO PRN (17:27)
[2024-10-16 20:35] LABS: Glucose,Whole Blood 260 mg/dL (70-110)
[2024-10-17 06:26] LABS: Glucose,Whole Blood 185 mg/dL (70-110)
[2024-10-17 11:27] LABS: Glucose,Whole Blood 219 mg/dL (70-110)
--- NOTE | 2024-10-17 15:34 | P.PN ---
Subjective Progress Note Date: 10/17/24 Hospital Course: Patient is a 68-year-old female with a history of dementia, type 2 diabetes mellitus, hyperlipidemia, hypertension, thyroid disorder presented to the ED for generalized weakness, fall, and behavioral issues at home. 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 Patient has a progressively worsening dementia. Patient's is attempting to take care of her however patient has not been taking her home meds for at least a month now including her diabetic medications. Earlier yesterday patient was feeling extremely weak and when she was trying to get up from her recliner she felt dizzy and lost her balance and fell forward hitting her head. She was assisted by her who was present by her side. Patient did not lose consciousness and is currently at baseline mentation. Patient reports that this is her third fall within the last 6 months with previous fall happened in a similar way. She is not on any blood thinner. Patient is also following cardiology outpatient with her recent appointment was a week ago as per patient everything was up-to-date. Otherwise, patient denies shortness of breath, chest pain, abdominal pain, diarrhea, constipation, dysuria, urgency or frequency of urination. Laboratory evaluation in the ED showed that she is severely hyperglycemic. Initial laboratory evaluation shows serum glucose of 500, venous blood gas pH 7.36, pCO2 47, HCO3 26, WBC 6.6, hemoglobin 13.9, platelet count 270, sodium 132, potassium 4.8, chloride 99, bicarb 25, BUN 13, creatinine 0.45, BUN 13, creatinine 0.45, Urinalysis positive for glycosuria. Acetone positive. Respiratory viral serologies negative. Repeat chemistry shows sodium 137, potassium 3.8, chloride 107, bicarb 23, BUN 12, creatinine 0.37, glucose 126 CT head and cervical spine shows no acute fracture or subluxation of the cervical spine and no acute intracranial hemorrhage with no midline shift or mass effect noted. EKG shows sinus bradycardia with ventricular rate of 47 bpm, DE interval 164 ms, QRS duration 101 ms, QTc 427 ms, low voltage EKG noted with with nonspecific ST to T wave changes noted. Subjective: Patient seen and examined at the bedside. No acute events overnight. She is AAO x 3. Otherwise, patient is not complaining of any pain, shortness of breath, chest pain, nausea, vomiting. Anticipated discharge tomorrow. All Systems reviewed and pertinent positives and negatives noted in HPI, all other symptoms are negative Objective: Vital signs reviewed. General: Patient looks relaxed and calm, continues to have sitter beside her. Derm: no unusual rashes/lesions, warm Head: atraumatic, normocephalic, symmetric Eyes: EOMI, no lid lag, anicteric sclera, pupils equal round reactive to light ENT: Nose and ears atraumatic Neck: No cervical lymphadenopathy, trachea midline, supple Mouth: no lip lesion, mucus membranes moist Cardiovascular: S1S2 reg, no murmur, positive dorsalis pedis pulse bilateral, no edema Lungs: CTA bilateral, no rhonchi, no rales, no accessory muscle use Abdominal: soft, nontender to palpation, no guarding Ext: muscle strength 5 out of 5 in all 4 extremities grossly, no gross muscle atrophy, no contractures, Neuro: CN II-XI grossly intact, no gross focal neuro deficits Psych: AAO x 2 Data reviewed today: Labs: Glucose 219 Images: No new imaging Assessment and Plan: Active: #Hyperglycemia in the setting of uncontrolled type 2 diabetes melitis #Generalized weakness with mechanical fall likely in the setting of uncontrolled type 2 diabetes mellitus #Noncompliant with medications Continue metformin 1000 mg p.o. twice daily with meals Continue with Lantus 25 units in morning and 25 units in evening and sliding scale insulin ACHS Monitor for hypoglycemia Continue cardiac telemetry PT OT on board patient likely to be discharged to SNF likely tomorrow #Hypertensive urgency Continue with Hyzaar 100-25 mg p.o. once daily #Sinus bradycardia Continue cardiac telemetry #Delirium Haldol 1 mg IM every 6 hours as needed Restraints as needed #Hypomagnesemia, resolved Continue monitor magnesium Chronic: Dementia, hyperlipidemia, hyperlipidemia - Resume home medications as appropriate DVT prophylaxis: Lovenox 40 mg subcu daily GI prophylaxis: Famotidine 20 mg p.o. twice daily F: None E: Replete as N: N.p.o. A: Ambulatory CODE STATUS: Full code Discussed with: Patient Anticipated discharge place: Pending clinical course Objective - Vital Signs Vital signs: Vital Signs Temp 97.9 F 10/17/24 14:00 Pulse 67 10/17/24 14:00 Resp 18 10/17/24 14:00 BP 131/80 10/17/24 14:00 Pulse Ox 96 10/17/24 14:00 FiO2 Intake & Output 10/16/24 10/17/24 10/17/24 18:59 06:59 18:59 Weight 70.5 kg 68 kg Other: Voiding Method Toilet # Voids 3 1 # Bowel Movements 1 - Labs CBC & Chem 7: 10/16/24 05:04 10/16/24 05:04 Labs: Abnormal Lab Results - Last 24 Hours (Table) 10/16/24 10/16/24 10/17/24 Range/Units 16:42 20:34 06:25 POC Glucose (mg/dL) 194 H 260 H 185 H (70-110) mg/dL 10/17/24 Range/Units 11:25 POC Glucose (mg/dL) 219 H (70-110) mg/dL
[2024-10-17 16:36] LABS: Glucose,Whole Blood 175 mg/dL (70-110)
[2024-10-17 20:31] LABS: Glucose,Whole Blood 103 mg/dL (70-110)
[2024-10-18 06:12] LABS: Glucose,Whole Blood 112 mg/dL (70-110)
[2024-10-18 11:52] LABS: Glucose,Whole Blood 178 mg/dL (70-110)
--- NOTE | 2024-10-18 12:40 | P.PN ---
Subjective Progress Note Date: 10/18/24 Hospital Course: Patient is a 68-year-old female with a history of dementia, type 2 diabetes mellitus, hyperlipidemia, hypertension, thyroid disorder presented to the ED for generalized weakness, fall, and behavioral issues at home. 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 Patient has a progressively worsening dementia. Patient's is attempting to take care of her however patient has not been taking her home meds for at least a month now including her diabetic medications. Earlier yesterday patient was feeling extremely weak and when she was trying to get up from her recliner she felt dizzy and lost her balance and fell forward hitting her head. She was assisted by her who was present by her side. Patient did not lose consciousness and is currently at baseline mentation. Patient reports that this is her third fall within the last 6 months with previous fall happened in a similar way. She is not on any blood thinner. Patient is also following cardiology outpatient with her recent appointment was a week ago as per patient everything was up-to-date. Otherwise, patient denies shortness of breath, chest pain, abdominal pain, diarrhea, constipation, dysuria, urgency or frequency of urination. Laboratory evaluation in the ED showed that she is severely hyperglycemic. Initial laboratory evaluation shows serum glucose of 500, venous blood gas pH 7.36, pCO2 47, HCO3 26, WBC 6.6, hemoglobin 13.9, platelet count 270, sodium 132, potassium 4.8, chloride 99, bicarb 25, BUN 13, creatinine 0.45, BUN 13, creatinine 0.45, Urinalysis positive for glycosuria. Acetone positive. Respiratory viral serologies negative. Repeat chemistry shows sodium 137, potassium 3.8, chloride 107, bicarb 23, BUN 12, creatinine 0.37, glucose 126 CT head and cervical spine shows no acute fracture or subluxation of the cervical spine and no acute intracranial hemorrhage with no midline shift or mass effect noted. EKG shows sinus bradycardia with ventricular rate of 47 bpm, MA interval 164 ms, QRS duration 101 ms, QTc 427 ms, low voltage EKG noted with with nonspecific ST to T wave changes noted. Subjective: Patient seen and examined at the bedside. No acute events overnight. She is AAO x 3. Otherwise, patient is not complaining of any pain, shortness of breath, chest pain, nausea, vomiting. Anticipated discharge on Sunday. All Systems reviewed and pertinent positives and negatives noted in HPI, all other symptoms are negative Objective: Vital signs reviewed. General: Patient looks relaxed and calm, continues to have sitter beside her. Derm: no unusual rashes/lesions, warm Head: atraumatic, normocephalic, symmetric Eyes: EOMI, no lid lag, anicteric sclera, pupils equal round reactive to light ENT: Nose and ears atraumatic Neck: No cervical lymphadenopathy, trachea midline, supple Mouth: no lip lesion, mucus membranes moist Cardiovascular: S1S2 reg, no murmur, positive dorsalis pedis pulse bilateral, no edema Lungs: CTA bilateral, no rhonchi, no rales, no accessory muscle use Abdominal: soft, nontender to palpation, no guarding Ext: muscle strength 5 out of 5 in all 4 extremities grossly, no gross muscle atrophy, no contractures, Neuro: CN II-XI grossly intact, no gross focal neuro deficits Psych: AAO x 2 Data reviewed today: Labs: Glucose 178 Images: No new imaging Assessment and Plan: Active: #Hyperglycemia in the setting of uncontrolled type 2 diabetes melitis #Generalized weakness with mechanical fall likely in the setting of uncontrolled type 2 diabetes mellitus #Noncompliant with medications Continue metformin 1000 mg p.o. twice daily with meals Continue with Lantus 25 units in morning and 25 units in evening and sliding scale insulin ACHS Monitor for hypoglycemia Continue cardiac telemetry PT OT on board patient likely to be discharged to SNF likely on Sunday #Hypertensive urgency Continue with Hyzaar 100-25 mg p.o. once daily #Sinus bradycardia Continue cardiac telemetry #Delirium Haldol 1 mg IM every 6 hours as needed Restraints as needed #Hypomagnesemia, resolved Continue monitor magnesium Chronic: Dementia, hyperlipidemia, hyperlipidemia - Resume home medications as appropriate DVT prophylaxis: Lovenox 40 mg subcu daily GI prophylaxis: Famotidine 20 mg p.o. twice daily F: None E: Replete as N: N.p.o. A: Ambulatory CODE STATUS: Full code Discussed with: Patient Anticipated discharge place: Pending clinical course Attestation I have seen and examined this patient with my resident , discussed the same with the resident/PÉREZ, and agree with the dictator's assessment and plan as written Dr. Mesfin barcenas Objective - Vital Signs Vital signs: Vital Signs Temp 98.0 F 10/18/24 07:26 Pulse 79 10/18/24 07:26 Resp 19 10/18/24 07:26 BP 150/101 10/18/24 07:26 Pulse Ox 99 10/18/24 07:26 FiO2 Intake & Output 10/17/24 10/18/24 10/18/24 18:59 06:59 18:59 Weight 71 kg Other: Voiding Method Toilet Diaper # Voids 1 2 - Labs CBC & Chem 7: 10/16/24 05:04 10/16/24 05:04 Labs: Abnormal Lab Results - Last 24 Hours (Table) 10/17/24 10/18/24 10/18/24 Range/Units 16:35 06:12 11:50 POC Glucose (mg/dL) 175 H 112 H 178 H (70-110) mg/dL
[2024-10-18 16:41] LABS: Glucose,Whole Blood 123 mg/dL (70-110)
[2024-10-18 20:41] LABS: Glucose,Whole Blood 108 mg/dL (70-110)
[2024-10-18] MEDS: QUEtiapine 25 MG TAB PO SCH (21:39)
[2024-10-19 01:28] LABS: Glucose,Whole Blood 150 mg/dL (70-110)
[2024-10-19 06:18] LABS: Glucose,Whole Blood 95 mg/dL (70-110)
[2024-10-19 08:53] LABS: Glucose,Whole Blood 107 mg/dL (70-110)
[2024-10-19 11:43] LABS: BUN/Creat Ratio 27.58 Ratio (12.00-20.00); Blood Urea Nitrogen 33.1 mg/dL (9.0-27.0); Calcium 9.9 mg/dL (8.7-10.3); Carbon Dioxide 20.6 mmol/L (21.6-31.8); Chloride 107 mmol/L (96-109); Glucose 110 mg/dL (70-110); Potassium 4.2 mmol/L (3.5-5.5); Sodium 145 mmol/L (135-145)
[2024-10-19 12:02] LABS: Glucose,Whole Blood 143 mg/dL (70-110)
--- NOTE | 2024-10-19 13:11 | P.PN ---
Subjective Progress Note Date: 10/19/24 Hospital Course: Patient is a 68-year-old female with a history of dementia, type 2 diabetes mellitus, hyperlipidemia, hypertension, thyroid disorder presented to the ED for generalized weakness, fall, and behavioral issues at home. 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 Patient has a progressively worsening dementia. Patient's is attempting to take care of her however patient has not been taking her home meds for at least a month now including her diabetic medications. Earlier yesterday patient was feeling extremely weak and when she was trying to get up from her recliner she felt dizzy and lost her balance and fell forward hitting her head. She was assisted by her who was present by her side. Patient did not lose consciousness and is currently at baseline mentation. Patient reports that this is her third fall within the last 6 months with previous fall happened in a similar way. She is not on any blood thinner. Patient is also following cardiology outpatient with her recent appointment was a week ago as per patient everything was up-to-date. Otherwise, patient denies shortness of breath, chest pain, abdominal pain, diarrhea, constipation, dysuria, urgency or frequency of urination. Laboratory evaluation in the ED showed that she is severely hyperglycemic. Initial laboratory evaluation shows serum glucose of 500, venous blood gas pH 7.36, pCO2 47, HCO3 26, WBC 6.6, hemoglobin 13.9, platelet count 270, sodium 132, potassium 4.8, chloride 99, bicarb 25, BUN 13, creatinine 0.45, BUN 13, creatinine 0.45, Urinalysis positive for glycosuria. Acetone positive. Respiratory viral serologies negative. Repeat chemistry shows sodium 137, potassium 3.8, chloride 107, bicarb 23, BUN 12, creatinine 0.37, glucose 126 CT head and cervical spine shows no acute fracture or subluxation of the cervical spine and no acute intracranial hemorrhage with no midline shift or mass effect noted. EKG shows sinus bradycardia with ventricular rate of 47 bpm, RI interval 164 ms, QRS duration 101 ms, QTc 427 ms, low voltage EKG noted with with nonspecific ST to T wave changes noted. Subjective: / patient seen and examined at the bedside. No acute events overnight. Denies any headaches. Denies any nausea or vomiting. Vital signs stable Objective: Vital signs reviewed. General: Patient looks relaxed and calm, continues to have sitter beside her. Derm: no unusual rashes/lesions, warm Head: atraumatic, normocephalic, symmetric Eyes: EOMI, no lid lag, anicteric sclera, pupils equal round reactive to light ENT: Nose and ears atraumatic Neck: No cervical lymphadenopathy, trachea midline, supple Mouth: no lip lesion, mucus membranes moist Cardiovascular: S1S2 reg, no murmur, positive dorsalis pedis pulse bilateral, no edema Lungs: CTA bilateral, no rhonchi, no rales, no accessory muscle use Abdominal: soft, nontender to palpation, no guarding Ext: muscle strength 5 out of 5 in all 4 extremities grossly, no gross muscle at rophy, no contractures, Neuro: CN II-XI grossly intact, no gross focal neuro deficits Psych: AAO x 2 Data reviewed today: Labs: Glucose 178 Images: No new imaging Assessment and Plan: Active: #Hyperglycemia in the setting of uncontrolled type 2 diabetes melitis #Generalized weakness with mechanical fall likely in the setting of uncontrolled type 2 diabetes mellitus #Noncompliant with medications Continue metformin 1000 mg p.o. twice daily with meals Continue with Lantus 25 units in morning and 25 units in evening and sliding scale insulin ACHS patient likely to be discharged to SNF likely on Sunday #Hypertensive urgency Continue with Hyzaar 100-25 mg p.o. once daily #Sinus bradycardia Continue cardiac telemetry #Delirium Haldol 1 mg IM every 6 hours as needed #Hypomagnesemia, resolved Continue monitor magnesium Chronic: Dementia, hyperlipidemia, hyperlipidemia - Resume home medications as appropriate DVT prophylaxis: Lovenox 40 mg subcu daily GI prophylaxis: Famotidine 20 mg p.o. twice daily F: None E: Replete as A: Ambulatory CODE STATUS: Full code Discussed with: Patient Anticipated discharge place: Pending clinical course Objective - Vital Signs Vital signs: Vital Signs Temp 96.7 F L 10/19/24 07:28 Pulse 65 10/19/24 07:28 Resp 18 10/19/24 07:28 BP 116/70 10/19/24 07:28 Pulse Ox 97 10/19/24 07:28 FiO2 Intake & Output 10/18/24 10/19/24 10/19/24 18:59 06:59 18:59 Intake Total 500 Balance 500 Weight 69 kg Intake: Oral 500 Other: Voiding Method Diaper # Voids 2 2 - Labs CBC & Chem 7: 10/16/24 05:04 10/19/24 03:59 Labs: Abnormal Lab Results - Last 24 Hours (Table) 10/18/24 10/18/24 10/19/24 Range/Units 11:50 16:39 01:27 POC Glucose (mg/dL) 178 H 123 H 150 H (70-110) mg/dL
[2024-10-19 16:30] LABS: Glucose,Whole Blood 249 mg/dL (70-110)
[2024-10-19 20:39] LABS: Glucose,Whole Blood 238 mg/dL (70-110)
[2024-10-20 05:35] VITALS: RESP 18
[2024-10-20 06:35] LABS: Glucose,Whole Blood 105 mg/dL (70-110)
[2024-10-20 10:18] LABS: African American GFR (CKD) 76 (>60 ml/min/1.73 sqM); Anion Gap 8 mmol/L; Blood Urea Nitrogen 37 mg/dL (7-17); Calcium 10.7 mg/dL (8.4-10.2); Carbon Dioxide 28 mmol/L (22-30); Chloride 98 mmol/L (98-107); Glucose 132 mg/dL (74-99); Non-African American GFR(CKD) 66 (>60 ml/min/1.73 sqM); Potassium 4.1 mmol/L (3.5-5.1); Sodium 134 mmol/L (137-145)
[2024-10-20 11:19] LABS: Glucose,Whole Blood 122 mg/dL (70-110)
--- NOTE | 2024-10-20 15:18 | P.DS ---
Providers Date of admission: 10/14/24 04:39 Expected date of discharge: 10/20/24 Attending physician: Franco Noe Primary care physician: Teresa Leslie Hospital Course: Discharge diagnoses; #Hyperglycemia in the setting of uncontrolled type 2 diabetes melitis #Generalized weakness with mechanical fall likely in the setting of uncontrolled type 2 diabetes mellitus #Noncompliant with medications #Hypertensive urgency #Sinus bradycardia #Delirium #Hypomagnesemia, resolved #Dementia #hyperlipidemia #hyperlipidemia Hospital course; Patient is a 68-year-old female with a history of dementia, type 2 diabetes mellitus, hyperlipidemia, hypertension, thyroid disorder presented to the ED for generalized weakness, fall, and behavioral issues at home. 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 Patient has a progressively worsening dementia. Patient's is attempting to take care of her however patient has not been taking her home meds for at least a month now including her diabetic medications. Earlier yesterday patient was feeling extremely weak and when she was trying to get up from her recliner she felt dizzy and lost her balance and fell forward hitting her head. She was assisted by her who was present by her side. Patient did not lose consciousness and is currently at baseline mentation. Patient reports that this is her third fall within the last 6 months with previous fall happened in a similar way. She is not on any blood thinner. Patient is also following cardiology outpatient with her recent appointment was a week ago as per patient everything was up-to-date. Otherwise, patient denies shortness of breath, chest pain, abdominal pain, diarrhea, constipation, dysuria, urgency or frequency of urination. Laboratory evaluation in the ED showed that she is severely hyperglycemic. Initial laboratory evaluation shows serum glucose of 500, venous blood gas pH 7.36, pCO2 47, HCO3 26, WBC 6.6, hemoglobin 13.9, platelet count 270, sodium 132, potassium 4.8, chloride 99, bicarb 25, BUN 13, creatinine 0.45, BUN 13, creatinine 0.45, Urinalysis positive for glycosuria. Acetone positive. Respiratory viral serologies negative. Repeat chemistry shows sodium 137, potassium 3.8, chloride 107, bicarb 23, BUN 12, creatinine 0.37, glucose 126 CT head and cervical spine shows no acute fracture or subluxation of the cervical spine and no acute intracranial hemorrhage with no midline shift or mass effect noted. EKG shows sinus bradycardia with ventricular rate of 47 bpm, NC interval 164 ms, QRS duration 101 ms, QTc 427 ms, low voltage EKG noted with with nonspecific ST to T wave changes noted. Patient discharged to [facility] in stable condition. Patient to begin Hyzaar daily, and Lantus 25 units twice daily. Discontinue Cozaar and Toujeo max Solostar at this time. Resume other home medications. Patient to follow-up with PCP. Physical exam: Vital signs reviewed. General: Patient looks relaxed and calm Derm: no unusual rashes/lesions, warm Head: atraumatic, normocephalic, symmetric Eyes: EOMI, no lid lag, anicteric sclera, pupils equal round reactive to light ENT: Nose and ears atraumatic Neck: No cervical lymphadenopathy, trachea midline, supple Mouth: no lip lesion, mucus membranes moist Cardiovascular: S1S2 reg, no murmur, positive dorsalis pedis pulse bilateral, no edema Lungs: CTA bilateral, no rhonchi, no rales, no accessory muscle use Abdominal: soft, nontender to palpation, no guarding Ext: Muscle strength 5 out of 5 in all 4 extremities grossly, no gross muscle atrophy, no contractures Neuro: CN II-XI grossly intact, no gross focal neuro deficits Psych: AAO x 2 Dictation was produced using [employer] dictation software. please excuse any grammatical, word or spelling errors. Patient Condition at Discharge: Stable Plan - Discharge Summary New Discharge Prescriptions: New Losartan-Hctz 50-12.5 mg [Hyzaar 50-12.5] 2 each PO DAILY #60 tab Insulin Glargine (Lantus) [Lantus Vial] 25 unit SQ BID@0700,2100 #7 each Continue metFORMIN HCL [Glucophage] 1,000 mg PO BID Bimatoprost [Lumigan 0.01% Ophth Soln] 1 drop BOTH EYES HS Celecoxib [CeleBREX] 200 mg PO DAILY Simvastatin [Zocor] 20 mg PO DAILY #0 Spironolactone [Aldactone] 25 mg PO DAILY Repaglinide [Prandin] 0.5 mg PO DAILY Repaglinide [Prandin] 1 mg PO HS Donepezil HCl [Aricept] 10 mg PO DAILY Hydrocortisone 1% Lotion 1 applic TOPICAL BID Insulin Aspart [NovoLOG Flexpen] See Protocol SQ AC-TID Mirabegron [Myrbetriq] 50 mg PO DAILY Memantine [Namenda] 10 mg PO BID Discontinued Losartan [Cozaar] 50 mg PO DAILY #30 tab Insulin Glargine,Hum.rec.anlog [[place]ostar] 110 units SQ HS Discharge Medication List Bimatoprost [Lumigan 0.01% Ophth Soln] 1 drop BOTH EYES HS 02/01/18 [History] metFORMIN HCL [Glucophage] 1,000 mg PO BID 02/01/18 [History] Celecoxib [CeleBREX] 200 mg PO DAILY 06/18/24 [History] Insulin Aspart [NovoLOG Flexpen] See Protocol SQ AC-TID 06/18/24 [History] Simvastatin [Zocor] 20 mg PO DAILY #0 06/20/24 [Rx] Donepezil HCl [Aricept] 10 mg PO DAILY 10/14/24 [History] Hydrocortisone 1% Lotion 1 applic TOPICAL BID 10/14/24 [History] Memantine [Namenda] 10 mg PO BID 10/14/24 [History] Mirabegron [Myrbetriq] 50 mg PO DAILY 10/14/24 [History] Repaglinide [Prandin] 0.5 mg PO DAILY 10/14/24 [History] Repaglinide [Prandin] 1 mg PO HS 10/14/24 [History] Spironolactone [Aldactone] 25 mg PO DAILY 10/14/24 [History] Insulin Glargine (Lantus) [Lantus Vial] 25 unit SQ BID@0700,2100 #7 each 10/20/24 [Rx] Losartan-Hctz 50-12.5 mg [Hyzaar 50-12.5] 2 each PO DAILY #60 tab 10/20/24 [Rx] Follow up Appointment(s)/Referral(s): Teresa Leslie DO [Primary Care Provider] - 1-2 days
[2024-10-20 15:32] VITALS: BP 131/82; PULSE 82; TEMP 98
[2024-10-20 16:47] LABS: Glucose,Whole Blood 165 mg/dL (70-110)
[2024-10-21] MEDS ORDERED: FAMOTIDINE 20 MG TAB PO SCH (09:00)
== END 2024-10-20 18:55 | DRG 638 ==
LOC: EC 23:49 → 3SCARD 10-14 04:39 → 4SSUR 10-15 12:43
PROVIDERS: ADMIT Hospitalist; ATTEND Hospitalist
DX: E11.65 Type 2 diabetes mellitus with hyperglycemia (principal); F03.92 Unspecified dementia, unspecified severity, with psychotic disturbance; I16.0 Hypertensive urgency; Z79.4 Long term (current) use of insulin; I10 Essential (primary) hypertension; E78.5 Hyperlipidemia, unspecified; R00.1 Bradycardia, unspecified; E83.42 Hypomagnesemia; E07.9 Disorder of thyroid, unspecified; T39.396A Underdosing of other nonsteroidal anti-inflammatory drugs [NSAID], initial encounter; T44.1X6A Underdosing of other parasympathomimetics [cholinergics], initial encounter; T43.8X6A Underdosing of other psychotropic drugs, initial encounter; T44.3X6A Underdosing of other parasympatholytics [anticholinergics and antimuscarinics] and spasmolytics, initial encounter; T50.0X6A Underdosing of mineralocorticoids and their antagonists, initial encounter; T46.5X6A Underdosing of other antihypertensive drugs, initial encounter; T46.6X6A Underdosing of antihyperlipidemic and antiarteriosclerotic drugs, initial encounter; W01.198A Fall on same level from slipping, tripping and stumbling with subsequent striking against other object, initial encounter; Y92.009 Unspecified place in unspecified non-institutional (private) residence as the place of occurrence of the external cause; Z91.81 History of falling; Z91.148 Patient's other noncompliance with medication regimen for other reason; Z79.84 Long term (current) use of oral hypoglycemic drugs; Z79.899 Other long term (current) drug therapy; Z79.1 Long term (current) use of non-steroidal anti-inflammatories (NSAID); Z78.1 Physical restraint status
CPT/HCPCS: 36415; 70450; 72125; 80048; 80051; 80053; 80320; 81003; 82009; 82550; 82565; 82803; 82947; 83036; 83735; 84100; 84520; 85025; 85610; 85730; 87636; 93005; 96361; 96365; 96372; 99291